=== PATIENT | male | born 1980 | race Two or more races ===

== ENCOUNTER 2020-05-11 11:41 | Outpatient (REF) | payer BC, SELFPAY | END 2020-05-11 11:42 | disposition home or self-care (01) | LOC: HO.LAB 11:41 | PROVIDERS: PCP Internal Medicine; Visit Provider Internal Medicine | DX: Z20.828 Contact with and (suspected) exposure to other viral communicable diseases (principal) | CPT/HCPCS: 87635 ==

== ENCOUNTER 2020-05-27 13:53 | Outpatient (REF) | payer BC, SELFPAY | END 2020-05-27 13:54 | disposition home or self-care (01) | LOC: HO.LAB 13:53 | PROVIDERS: Visit Provider Internal Medicine | DX: Z20.828 Contact with and (suspected) exposure to other viral communicable diseases (principal) | CPT/HCPCS: C9803; U0003 ==

== ENCOUNTER 2020-06-03 17:24 | Outpatient (REF) | payer BC, SELFPAY ==
--- NOTE | 2020-06-03 17:32 | XR_ITS ---
EXAMINATION: XR CHEST CLINICAL INFORMATION: Dyspnea COMPARISON: None TECHNIQUE: Frontal view of the chest was obtained. FINDINGS: No acute finding. No failure or infiltrate. There is no effusion. The heart size is within normal limits. The hilar structures do not appear pathologically enlarged. There is no effusion. XR/XR chest 1V IMPRESSION: No acute process.
[2020-06-03 18:04] LABS: MANUAL DIFF FLAG NO
[2020-06-03 18:07] LABS: Basophils Absolute Auto 0.1 X10*3/uL (0.0-0.2); Basophils Percent Auto 0.7 % (0-2); Eosinophils Absolute Auto 0.1 X10*3/uL (0.0-0.4); Eosinophils Percent Auto 0.8 % (0-4); Hemoglobin 7.5 g/dl (14.0-18.0); Imm Gran Abs Auto 0.08 X10*3/uL (0.00-0.03); Imm Gran Pct Auto 0.7 % (0.0-0.4); Lymphocytes Absolute Auto 2.6 X10*3/uL (1.2-4.9); Lymphocytes Percent Auto 24.6 % (20-40); Mean Corpuscular Hemoglobin 21.3 pg (27.0-33.0); Mean Platelet Volume 10.4 fL (9.4-12.4); Monocytes Absolute Auto 0.9 X10*3/uL (0.1-1.2); Neutrophils Percent Auto 65.2 % (45-73); Platelet Count 386 X10*3/uL (160-400); Red Blood Count 3.52 X10*6/uL (4.60-5.80); White Blood Count 10.7 X10*3/uL (4.8-10.8)
[2020-06-03 18:31] LABS: Iron 18 mcg/dL (45-160); Percent Iron Saturation 4 % (15-50); Total Iron Binding Capacity 440 mcg/dL (228-428); Unsaturated Iron Binding 422 ug/dL
== END 2020-06-03 17:25 | disposition home or self-care (01) ==
LOC: HO.LAB 17:24
PROVIDERS: PCP Internal Medicine; Visit Provider Physician Assistant
DX: R06.00 Dyspnea, unspecified (principal)
CPT/HCPCS: 36415; 71045; 83540; 85025

== ENCOUNTER 2020-06-18 16:23 | Outpatient (REF) | payer BC, SELFPAY ==
[2020-06-18 16:46] LABS: MANUAL DIFF FLAG NO
[2020-06-18 16:47] LABS: Basophils Absolute Auto 0.1 X10*3/uL (0.0-0.2); Basophils Percent Auto 1.6 % (0-2); Eosinophils Absolute Auto 0.1 X10*3/uL (0.0-0.4); Eosinophils Percent Auto 1.7 % (0-4); Hematocrit 29.7 % (42-52); Hemoglobin 8.8 g/dl (14.0-18.0); Imm Gran Abs Auto 0.03 X10*3/uL (0.00-0.03); Imm Gran Pct Auto 0.5 % (0.0-0.4); Immature Retic Fraction 31.2 % (2.3-13.4); Lymphocytes Absolute Auto 2.4 X10*3/uL (1.2-4.9); Lymphocytes Percent Auto 37.4 % (20-40); Mean Corpuscular HGB Conc 29.6 g/dl (31.0-36.0); Mean Corpuscular Hemoglobin 21.7 pg (27.0-33.0); Mean Corpuscular Volume 73.3 fL (80-98); Mean Platelet Volume 10.4 fL (9.4-12.4); Monocytes Absolute Auto 0.6 X10*3/uL (0.1-1.2); Monocytes Percent Auto 9.8 % (2-11); Neutrophils Absolute Auto 3.1 X10*3/uL (2.0-8.3); Platelet Count 368 X10*3/uL (160-400); Red Blood Count 4.05 X10*6/uL (4.60-5.80); Red Cell Distribution Width 18.3 % (11.0-16.0); Retic HGB Equivalent 24.6 pg (30.0-35.0); Reticulocytes Absolute 0.162 X10*6/uL (0.026-0.095); White Blood Count 6.3 X10*3/uL (4.8-10.8)
[2020-06-18 17:38] LABS: Iron 41 mcg/dL (45-160); Percent Iron Saturation 10 % (15-50); Total Iron Binding Capacity 409 mcg/dL (228-428); Unsaturated Iron Binding 368 ug/dL
== END 2020-06-18 16:24 | disposition home or self-care (01) ==
LOC: HO.LAB 16:23
PROVIDERS: PCP Internal Medicine; Visit Provider Physician Assistant
DX: D50.9 Iron deficiency anemia, unspecified (principal)
CPT/HCPCS: 36415; 83540; 85025; 85027; 85045

== ENCOUNTER → 2020-07-15 14:43 | Outpatient (BNVA) | payer BC, SELFPAY | PROVIDERS: PCP Internal Medicine; Visit Provider Surgery | DX: K64.9 Unspecified hemorrhoids (principal) | CPT/HCPCS: 46600 ==

== ENCOUNTER 2020-08-28 06:00 | Day surgery (SDC) | payer BC, SELFPAY ==
[2020-08-24 10:15] VITALS: BMI 35.3
--- NOTE | 2020-08-26 14:09 | P.CONAN_ITS ---
Documented by User: Genet Lee 08/26/20 14:12 HPI - Anesthesia Eval Consult details Narrative: 40yo M for Hemorrhoidectomy,EUA PMFSH Active Problems Active Problems: All Active Problems (Updated 08/24/20 @ 10:12 by Mayra Nolan) Dyspnea on exertion (Acute) Hemorrhoid (Acute) Iron deficiency anemia (Acute) Rectal bleeding (Acute) Bleeding hemorrhoid (Acute) HTN (hypertension) (Acute) Hypertension (Acute) Past Medical History Medical History Anemia High cholesterol Hypertension Iron deficiency anemia Family History Family History Mother Medical history unknown Father Prostate cancer Paternal Uncle Prostate cancer Paternal Grandfather Prostate cancer Diabetes Hypertension Surgical History Surgical History H/O hand surgery History of tonsillectomy Hx of colonoscopy Social History Social History Are you a primary healthcare consultant to a significant other at home: No Do you presently have visiting nurse or other home services: No Alcohol intake: current Alcohol intake frequency: holidays/special occasions only Smoking Status: Never smoker Use of substances other than those prescribed or required for medical reasons: No Have you been hit, kicked, punched, or otherwise hurt by someone within the past year? If so, by whom?: No Advance Directives: No Advance Directives Information Provided: No Advance Directives on File: No Recently lost weight without trying: No Meds Allergies Allergy/AdvReac Type Severity Reaction Status Date / Time hydroxyzine AdvReac Unknown sleepiness Verified 08/24/20 10:13 lisinopril AdvReac Unknown dry cough, Verified 08/24/20 10:13 pruritus Home Medications Medication Instructions Recorded Confirmed Last Taken Type atorvastatin 80 mg tablet 80 mg PO DAILY 06/03/20 08/24/20 Unknown History cholecalciferol (vitamin D3) 25 25 mcg PO DAILY 06/03/20 08/24/20 Unknown History mcg (1,000 unit) tablet fenofibrate nanocrystallized 145 145 mg PO DAILY 06/03/20 08/24/20 Unknown History mg tablet hydrochlorothiazide 25 mg tablet 25 mg PO DAILY 06/03/20 08/24/20 Unknown History Exam Exam Date and Time: August 26, 2020 1409 Height,Weight and Vital Signs: Height 6 ft 2 in Weight 124.738 kg Pertinent Lab Results Pertinent Lab Results: Laboratory Tests 06/18/20 16:35 WBC 6.3 Hgb 8.8 L Hct 29.7 L Plt Count 368 Assessment and Plan Assessment Anesthesia Assessment: Chart Reviewed Documented by User: Liza Harrison 08/28/20 07:12 [facility] Past Medical History Medical History Anemia High cholesterol Hypertension Iron deficiency anemia Family History Family History Mother Medical history unknown Father Prostate cancer Paternal Uncle Prostate cancer Paternal Grandfather Prostate cancer Diabetes Hypertension Surgical History Surgical History H/O hand surgery History of tonsillectomy Hx of colonoscopy Social History Social History Are you a primary healthcare consultant to a significant other at home: No Do you presently have visiting nurse or other home services: No Alcohol intake: current Alcohol intake frequency: holidays/special occasions only Smoking Status: Never smoker Use of substances other than those prescribed or required for medical reasons: No Have you been hit, kicked, punched, or otherwise hurt by someone within the past year? If so, by whom?: No Advance Directives: No Advance Directives Information Provided: No Advance Directives on File: No Recently lost weight without trying: No Meds Allergies Allergy/AdvReac Type Severity Reaction Status Date / Time hydroxyzine AdvReac Unknown sleepiness Verified 08/24/20 10:13 lisinopril AdvReac Unknown dry cough, Verified 08/24/20 10:13 pruritus Home Medications Medication Instructions Recorded Confirmed Last Taken Type atorvastatin 80 mg tablet 80 mg PO DAILY 06/03/20 08/24/20 Unknown History cholecalciferol (vitamin D3) 25 25 mcg PO DAILY 06/03/20 08/24/20 Unknown History mcg (1,000 unit) tablet fenofibrate nanocrystallized 145 145 mg PO DAILY 06/03/20 08/24/20 Unknown History mg tablet hydrochlorothiazide 25 mg tablet 25 mg PO DAILY 06/03/20 08/24/20 Unknown History Exam Airway Mallampati Class: II TM Dist: >3cm Neck ROM: Full
[2020-08-28] VITALS (9 sets, daily range): BP systolic 129–158; BP diastolic 83–102; PULSE 69–89; RESP 16–20; TEMP 36.8–37.1; O2SAT 99–100
[2020-08-28] MEDS: Lactated Ringers 1,000 ML 100 ML IVCONT (06:47)
--- NOTE | 2020-08-28 07:22 | MHC.SHP ---
Pre-Procedural Eval Section B Chief Complaint: bleeding hemorrhoid Allergies: Allergies Allergy/AdvReac Type Severity Reaction Status Date / Time hydroxyzine AdvReac Unknown sleepiness Verified 08/24/20 10:13 lisinopril AdvReac Unknown dry cough, Verified 08/24/20 10:13 pruritus Plan I have reviewed the history and physical and performed a pertinent physical examination on my patient. No changes have occurred unless specified.
--- NOTE | 2020-08-28 08:39 | PM.OP ---
Brief Operative Note Date of Service: 08/28/20 Pre-op diagnosis: bleeding int ext hemorrhoids Post-op diagnosis: same Procedure: EUA, hemorrhoidectomy x 3 Surgeon: Stuart Arzola MD Anesthesia: GETA Estimated blood loss (mL): 75 Pathology: other (hemorrhoids) Condition: stable Disposition: PACU
--- NOTE | 2020-08-28 08:40 | P.OP_ITS ---
Operative Note Operative Note Date of Service: 08/28/20 Narrative: PROCEDURE: EXAM UNDER ANESTHESIA, HEMORRHOIDECTOMY X3 COLUMNS PREOP DIAGNOSIS: BLEEDING INTERNAL AND EXTERNAL HEMORRHOIDS POSTOP DIAGNOSIS: THE SAME, WITH VERY BULKY HEMORRHOIDAL COLUMNS SURGEON: CRESCENCIO BARRERA M.D. The patient is a 40-year-old male with chronic problems with pain, swelling and bleeding with his hemorrhoids. He was seen in the office and was noted to have bulky hemorrhoidal columns. In view of worsening symptoms wanted proceed with hemorrhoidectomy. He understood the technique of the procedure as well as the risks, benefits, and alternatives. The patient was brought to the operating room and placed in prone nazanin-knife position under general anesthesia via endotracheal tube. The buttocks were retracted with wide tape laterally. The perianal was prepped and draped in the usual sterile fashion. A surgical time-out was done. The patient received Cefotan 2 g IV preoperatively. I infiltrated the perianal area with lidocaine 1%. Examination of the oral orifice revealed very bulky hemorrhoidal columns, both the left and right side. I then inserted abuse Whitlock retractor and examined the anal canal circumferentially. Again very bulky hemorrhoidal columns were seen, a mix of internal and external, with the bulkiest column on the right side. I proceeded to apply a Bella graspers at the hemorrhoidal column on the right. I used these Bella graspers to retract the hemorrhoidal column into the field. I applied a vikaid-ig-bxbec stitch at the pedicle proximal to the dentate line using a chromic 3-0. I then made an incision around this hemorrhoid column to the perianal skin using a blade 15. I excised this hemorrhoidal column above the plane of sphincters using met some bone scissors all the way to the pedicle. I then closed the incision with a running chromic 3-0 stitch. I had to place multiple additional chromic 3-0 figure-eight sutures for hemostasis in view of the significant bleeding from the very bulky hemorrhoidal column. I then proceeded to repeat the procedure on the 2 other hemorrhoidal columns. The 2nd, that was removed was the one on the right anterior. Again this was grasped with a Bella grasper. I made a gzfest-uo-icksr stitch at the pedicle using chromic 3-0 and made an incision around this to the perianal skin using a blade 15. I excised this hemorrhoidal column above the plane of the sphincters using scissors. I closed this incision with a running chromic 3-0 stitch. I had to place multiple qcgtta-qa-zqhff sutures as well. I removed the hemorrhoidal column which was also bulky on the left using the same back technique. I made a zcjyde-zo-ufvvl stitch at the pedicle and made incision around this to the perianal skin using blade 15. I excised this hemorrhoidal column above the plane of the sphincters using scissors. I closed the incision with a running chromic 2-0 stitch I observed for hemo stasis. Again in view of the very bulky nature of this hemorrhoids, I had to apply multiple other figure-eight chromic 3-0 sutures. Once hemostasis was ensured I proceeded to then apply rolled Gelfoam packing into the anal canal for additional hemostasis. I infiltrated the perianal area Marcaine 0.5% for postop analgesia. We proceeded to then observe for about 2 minutes. Once hemostasis was confirmed the procedure was completed The patient tolerated well. The contained noted. Initial fine counts of spo nges and instruments were correct. Estimated blood loss about 75 cc. The patient was extubated without difficulty and transferred to recovery room with stable vital signs.
[2020-08-28] MEDS: oxyCODONE HCl Immed Release 5 MG TABLET 10 MG PO (08:58)
[2020-08-28] MEDS: fentaNYL citrate/PF 100 MCG/2 ML VIAL 50 MCG IVPUSH ×2 (08:59→09:09)
== END 2020-08-28 10:18 | disposition home or self-care (01) ==
PROVIDERS: PCP Internal Medicine; Visit Provider Surgery
PROC: (CPT 46260; principal; 2020-08-28 07:30)
DX: K64.8 Other hemorrhoids (principal); K64.4 Residual hemorrhoidal skin tags; I10 Essential (primary) hypertension
CPT/HCPCS: 46260; 88304; J1100; J1170; J1885; J2250; J2405; J3010

== ENCOUNTER 2020-08-28 14:33 | Emergency (ER) | payer BC, SELFPAY ==
--- NOTE | 2020-08-30 06:43 | ED.MALEGU ---
HPI - Male Genitourinary General Chief complaint: Urogenital-Male Stated complaint: diff urinating,s/p surgery Related Data Home Medications Medication Instructions Recorded Confirmed atorvastatin 80 mg tablet 80 mg PO DAILY 06/03/20 08/24/20 cholecalciferol (vitamin D3) 25 25 mcg PO DAILY 06/03/20 08/24/20 mcg (1,000 unit) tablet fenofibrate nanocrystallized 145 145 mg PO DAILY 06/03/20 08/24/20 mg tablet hydrochlorothiazide 25 mg tablet 25 mg PO DAILY 06/03/20 08/24/20 Previous Rx's Medication Instructions Recorded ferrous sulfate 325 mg (65 mg 325 mg PO BID 30 Days #60 tab 06/04/20 iron) tablet hydrocortisone 1 % topical cream 1 applic TOPICAL TID PRN 15 Days 06/04/20 #28 g amlodipine 5 mg tablet 5 mg PO DAILY 30 Days #30 tab 06/18/20 blood pressure monitor #1 ea 06/18/20 docusate sodium 100 mg capsule 100 mg PO BID #60 cap 07/22/20 docusate sodium [Colace] 100 mg PO BID #60 cap 08/28/20 ibuprofen 600 mg PO Q6H PRN #30 tab 08/28/20 oxycodone-acetaminophen [Percocet] 1 - 2 tab PO Q4-6H PRN #30 tab 08/28/20 Allergies Allergy/AdvReac Type Severity Reaction Status Date / Time hydroxyzine AdvReac Unknown sleepiness Verified 08/24/20 10:13 lisinopril AdvReac Unknown dry cough, Verified 08/24/20 10:13 pruritus PMFSH Past Medical History Medical History Anemia High cholesterol Hypertension Iron deficiency anemia Surgical History H/O hand surgery History of tonsillectomy Hx of colonoscopy Family History Family History Mother Medical history unknown Father Prostate cancer Paternal Uncle Prostate cancer Paternal Grandfather Prostate cancer Diabetes Hypertension Social History Social History Alcohol intake: current Alcohol intake frequency: holidays/special occasions only Smoking Status: Never smoker Advance Directives: No Advance Directives Information Provided: No Discharge Plan Discharge Patient Disposition: Left Without Being Seen Discharge Date/Time: 08/28/20 16:05
== END 2020-08-28 16:05 | disposition left against medical advice (07) ==
PROVIDERS: Emergency Provider Emergency Medicine; PCP Internal Medicine
DX: R30.0 Dysuria (principal); I10 Essential (primary) hypertension; D50.9 Iron deficiency anemia, unspecified
CPT/HCPCS: 99281

== ENCOUNTER → 2020-09-10 08:48 | Outpatient (BNVA) | payer BC, SELFPAY | PROVIDERS: PCP Internal Medicine; Visit Provider Surgery ==

== ENCOUNTER → 2021-01-06 15:45 | Outpatient (BNVA) | payer BC, SELFPAY | PROVIDERS: PCP Internal Medicine; Visit Provider Nurse Practitioner Family ==

== ENCOUNTER 2021-03-01 06:38 | Outpatient (REF) | payer BC, SELFPAY ==
[2021-03-01 07:18] LABS: Hematocrit 40.4 % (42-52); Hemoglobin 12.7 g/dl (14.0-18.0); Mean Corpuscular HGB Conc 31.4 g/dl (31.0-36.0); Mean Corpuscular Hemoglobin 23.6 pg (27.0-33.0); Mean Corpuscular Volume 75.2 fL (80-98); Mean Platelet Volume 10.8 fL (9.4-12.4); Platelet Count 329 X10*3/uL (160-400); Red Blood Count 5.37 X10*6/uL (4.60-5.80); Red Cell Distribution Width 14.4 % (11.0-16.0)
[2021-03-01 07:39] LABS: Alanine Aminotransferase 28 U/L (0-40); Albumin Level 4.7 g/dL (3.5-5.0); Alkaline Phosphatase 83 U/L (39-117); Anion Gap 15 (12-20); Aspartate Amino Transferase 17 U/L (5-37); Bilirubin Total 0.2 mg/dL (0.0-1.0); Blood Urea Nitrogen 10 mg/dL (9-16); Carbon Dioxide 26 mmol/L (22-29); Chloride 105 mmol/L (96-108); Cholesterol 221 mg/dL; Estimated Glomerular Filt Rate > 60; Glucose Fasting 90 mg/dL (60-99); HDL Cholesterol 36 mg/dL; Iron 37 mcg/dL (45-160); LDL Cholesterol Calculated 120 mg/dl; Percent Iron Saturation 10 % (15-50); Potassium 4.3 mmol/L (3.3-5.1); Sodium 142 mmol/L (135-145); Total Iron Binding Capacity 382 mcg/dL (228-428); Total Protein 7.3 g/dL (6.5-8.0); Triglycerides 328 mg/dL; Unsaturated Iron Binding 345 ug/dL
[2021-03-01 07:59] LABS: TSH reflex Free T4 1.98 uIU/mL (0.32-4.0)
== END 2021-03-01 06:39 | disposition home or self-care (01) ==
LOC: HO.LAB 06:38
PROVIDERS: PCP Physician Assistant; Referring Provider Nurse Practitioner Family; Visit Provider Physician Assistant
DX: I10 Essential (primary) hypertension (principal); D50.0 Iron deficiency anemia secondary to blood loss (chronic); Z80.42 Family history of malignant neoplasm of prostate; Z12.5 Encounter for screening for malignant neoplasm of prostate
CPT/HCPCS: 36415; 80053; 80061; 83540; 84153; 84443; 85027

== ENCOUNTER → 2021-03-02 15:19 | Outpatient (BNVA) | payer BC, SELFPAY | PROVIDERS: Visit Provider Nurse Practitioner Family ==

== ENCOUNTER 2021-04-05 11:37 | Day surgery (SDC) | payer BC, SELFPAY ==
[2021-03-31 11:47] VITALS: BMI 34.9
--- NOTE | 2021-04-01 15:18 | HO.ANESPROP2 ---
Documented by User: Genet Lee NP 04/01/21 15:20 HPI - Anesthesia Eval Consult details Narrative: 40yo M for Colonoscopy PMFSH Active Problems Active Problems: All Active Problems (Updated 11/30/20 @ 07:10 by Jose Antonio Bryant PA-C) Annual physical exam (Acute) Tinea unguium (Acute) Tubular adenoma of colon (Acute) Family history of prostate carcinoma (Acute) Colon cancer screening (Acute) Iron deficiency anemia (Acute) Dyspnea on exertion (Acute) Hemorrhoid (Acute) Rectal bleeding (Acute) Bleeding hemorrhoid (Acute) HTN (hypertension) (Acute) Hypertension (Acute) Past Medical History Medical History Anemia High cholesterol Hypertension Iron deficiency anemia Family History Family History Mother Medical history unknown Father Prostate cancer Paternal Uncle Prostate cancer Paternal Grandfather Prostate cancer Diabetes Hypertension Surgical History Surgical History H/O hand surgery History of hemorrhoidectomy History of tonsillectomy Hx of colonoscopy Social History Social History Are you a primary director day care center to a significant other at home: No Do you presently have visiting nurse or other home services: No Alcohol intake: current Alcohol intake frequency: holidays/special occasions only Patient Tobacco Use Status: Never used Tobacco Use of substances other than those prescribed or required for medical reasons: No Have you been hit, kicked, punched, or otherwise hurt by someone within the past year? If so, by whom?: No Are you DNR?: No Advance Directives: No Advance Directives Information Provided: Yes Recently lost weight without trying: No Nutrition Risks: No Nutritional Risk Poor oral hygiene: No Current occupational status: employed Current occupation: forklift truck mechanic Meds Allergies Allergy/AdvReac Type Severity Reaction Status Date / Time hydroxyzine AdvReac Unknown sleepiness Verified 03/02/21 15:33 lisinopril AdvReac Unknown dry cough, Verified 03/02/21 15:33 pruritus Exam Exam Date and Time: April 01, 2021 1518 Height,Weight and Vital Signs: Height 6 ft 2 in Weight 123.377 kg Pertinent Lab Results Pertinent Lab Results: Laboratory Tests 03/01/21 03/01/21 06:45 06:45 WBC 9.0 Hgb 12.7 L D Hct 40.4 L D Plt Count 329 Sodium 142 Potassium 4.3 Chloride 105 Carbon Dioxide 26 BUN 10 Creatinine 1.10 Assessment and Plan Assessment Anesthesia Assessment: Chart Reviewed Documented by User: Riana Parks MD 04/05/21 12:03 [facility] Past Medical History Medical History Anemia High cholesterol Hypertension Iron deficiency anemia Family History Family History Mother Medical history unknown Father Prostate cancer Paternal Uncle Prostate cancer Paternal Grandfather Prostate cancer Diabetes Hypertension Family history of problems with anesthesia: No Surgical History Surgical History H/O hand surgery History of hemorrhoidectomy History of tonsillectomy Hx of colonoscopy History of Problems with Anesthesia: No Social History Social History Are you a primary director day care center to a significant other at home: No Do you presently have visiting nurse or other home services: No Alcohol intake: current Alcohol intake frequency: holidays/special occasions only Patient Tobacco Use Status: Never used Tobacco Use of substances other than those prescribed or required for medical reasons: No Have you been hit, kicked, punched, or otherwise hurt by someone within the past year? If so, by whom?: No Are you DNR?: No Advance Directives: No Advance Directives Information Provided: Yes Recently lost weight without trying: No Nutrition Risks: No Nutritional Risk Poor oral hygiene: No Current occupational status: employed Current occupation: forklift truck mechanic Meds Allergies Allergy/AdvReac Type Severity Reaction Status Date / Time hydroxyzine AdvReac Unknown sleepiness Verified 03/02/21 15:33 lisinopril AdvReac Unknown dry cough, Verified 03/02/21 15:33 pruritus Exam Airway Mallampati Class: II TM Dist: >3cm Neck ROM: Full Heart: rrr Lungs: cta Assessment and Plan Assessment Anesthesia Assessment: Anesthesia Plan Discussed and Chart Reviewed Final Anesthetic Review Family History of Problems with Anesthesia: No History of Problems with Anesthesia: No NPO: Yes ASA Class: III Final Preanesthetic Review: No Changes in Pt Med Stat, Meds/Allgs Chart Reviewed and Consent Obtained/Reviewed Patient Risk: Intermediate Procedure Risk: Intermediate Anesthetic Plan Anesthetic Plan: MAC: Disposition: Standard PACU
[2021-04-05 11:50] VITALS: BP 195/78; PULSE 65; RESP 18; TEMP 36.9; O2SAT 98
[2021-04-05 11:56] VITALS: BP 152/70
--- NOTE | 2021-04-05 11:57 | P.HPSUR_ITS ---
Pre-Procedural Eval Section A Date of Service: 04/05/21 Section B Chief Complaint: Screening Relevant Family History (Specify if Yes): No Relevant Social History: None Present Medications: see Short Stay Collaborative assessment Medical History: Significant History (Anemia High cholesterol Hypertension) History of Previous Operations: Relevant previous surgery/procedure and date(s) (H/O hand surgery History of hemorrhoidectomy History of tonsillectomy Hx of colonoscopy) Allergies: Allergies Allergy/AdvReac Type Severity Reaction Status Date / Time hydroxyzine AdvReac Unknown sleepiness Verified 03/02/21 15:33 lisinopril AdvReac Unknown dry cough, Verified 03/02/21 15:33 pruritus Review of Systems Sugical H&P ROS: Negative: Constitution, Cardiovascular, Respiratory, Neurological, Psychiatric, Hem-Onc, Allergic/Immunologic, Gastrointestinal, Ge nitourinary, Musculoskeletal, Integumentary, Endocrine and Eyes/Ears/Nose/Throat Exam Surgical H&P Exam: Normal: HEENT, Normal: Heart, Normal: Lungs, Normal: Extremities, Normal: Abdomen, Normal: Skin and Normal: Neurological Plan Diagnosis/Plan: Unchanged I have reviewed the history and physical and performed a pertinent physical examination on my patient. No changes have occurred unless specified.
[2021-04-05] MEDS: Lactated Ringers 1,000 ML 100 ML IVCONT (12:02)
--- NOTE | 2021-04-05 12:33 | P.BOP_ITS ---
Brief Operative Note Date of Service: 04/05/21 Pre-op diagnosis: hx of colon polyp Post-op diagnosis: same Procedure: see op note Surgeon: Susi Weiss MD Anesthesia: MAC Was an Office Machine Installer used for this Procedure?: No Estimated blood loss (mL): 0 Condition: stable Disposition: PACU
--- NOTE | 2021-04-05 12:34 | P.OP_ITS ---
Operative Note Operative Note Date of Service: 04/05/21 Narrative: Operative Information Procedure Description: Colonoscopy COLONOSCOPY Instrument: Olympus variable stiffness pediatric scope 190L Colonoscopy Monitoring: Vital signs and clinical assessment, continuous EKG monitoring, Pulse oximetry, Carbon Dioxide monitoring and blood pressure monitoring were done throughout the procedure. Colon withdrawal time was 10 minutes. Procedure: The patient was placed in the left lateral decubitis position and pre-procedure medications were administered. After a digital rectal examination of the ano-rectum, the video colonoscope was inserted into the rectum and advanced through the colon to the cecum/TI. The colonoscope was slowly withdrawn in a retrograde panoramic fashion and the colon mucosa was carefully examined including a retroflexed view of the rectum. Findings and interventions are described below. Procedure Difficulty:easy Findings: Terminal Ileum-normal Cecum:normal Ascending Colon: normal Transverse Colon -normal Descending Colon: 6-8 mm sessile polyp removed with forceps Sigmoid Colon: normal Rectum: Retroflexion with moderate sized internal hemorrhoids, grade II with red irce , x 1 sessile polyp 6-8 mm removed with forceps Anorectum - normal Colon preparation: [place] Bowel Preparation Scale Right colon; 2 (borderline 2 after extensive washing) Transverse colon: 2 Left colon; 2 (0 = Unprepared colon segment with mucosa not seen due to solid stool that cannot be cleared. 1 = Portion of mucosa of the colon segment seen, but other areas of the colon segment not well seen due to staining, residual stool and/or opaque liquid. 2 = Minor amount of residual staining, small fragments of stool and/or opaque liquid, but mucosa of colon segment seen well. 3 = Entire mucosa of colon segment seen well with no residual staining, small fragments of stool or opaque liquid) Impression and Post Procedure Diagnosis: polyps internal hemorrhoids Plan: High fiber diet leaflet Avoid straining at stool, epsom salts and sitz bath, anusol supps or cream Repeat Colonoscopy in 5 years due to right sided prep and polyps or earlier if clinically indicated Above findings were reviewed with the patient and relevant handouts were provided if indicated.
[2021-04-05 12:41] VITALS: BP 110/76; PULSE 84; RESP 16; TEMP 36.1; O2SAT 96
[2021-04-05 12:56] VITALS: BP 140/94; PULSE 80; RESP 18; O2SAT 96
--- NOTE | 2021-04-05 13:10 | PC.NURSE ---
1300- SPOKE W PT AT LENGTH RE BP HERE AND NEED TO TAKE BP MED DAILY PRESCRIBED, STS HE DID NOT TAKE TODAY, WILL TAKE WHEN HE GETS HOME
== END 2021-04-05 14:08 | disposition home or self-care (01) ==
PROVIDERS: PCP Physician Assistant; Visit Provider Internal Medicine Gastroenterology
PROC: 0DJD8ZZ Inspection of Lower Intestinal Tract, Via Natural or Artificial Opening Endoscopic (ICD-10-PCS; CPT 45378; principal; 2021-04-05 13:20)
DX: Z12.11 Encounter for screening for malignant neoplasm of colon (principal); K63.5 Polyp of colon; K64.1 Second degree hemorrhoids; Z86.010 Personal history of colon polyps; I10 Essential (primary) hypertension; D50.0 Iron deficiency anemia secondary to blood loss (chronic)
CPT/HCPCS: 45380; 88305

== ENCOUNTER 2021-07-07 16:30 | Emergency (ER) | payer BC, SELFPAY ==
--- NOTE | 2021-07-07 | ECG_ITS ---
Test Reason : CHEST PAIN Blood Pressure : / mmHG Vent. Rate : 093 BPM Atrial Rate : 093 BPM P-R Int : 162 ms QRS Dur : 094 ms QT Int : 340 ms P-R-T Axes : 020 -03 -06 degrees QTc Int : 422 ms Normal sinus rhythm Normal ECG When compared with ECG of 24-JUN-2018 23:12, No significant changes seen Referred By: Generic ED Physician Electronically Signed By:BRIANNA TAYLOR
--- NOTE | ~2021-07-07 | XR_ITS ---
EXAMINATION: XR CHEST CLINICAL INFORMATION: Chest pain. COMPARISON: Chest x-ray 06/03/2020 TECHNIQUE: Frontal portable view of the chest was obtained. 5:15 PM FINDINGS: Patchy multifocal bibasilar airspace opacities, worse at the right than the left lung base. No pleural effusion. No pneumothorax. The heart size is normal. The cardiac and mediastinal contours are normal. There is no pulmonary vascular congestion. XR/XR chest 1V IMPRESSION: Patchy multifocal bibasilar airspace disease.
[2021-07-07 17:34] LABS: MANUAL DIFF FLAG NO
[2021-07-07 17:41] LABS: Basophils Absolute Auto 0.1 X10*3/uL (0.0-0.2); Basophils Percent Auto 1.1 % (0-2); Eosinophils Absolute Auto 0.1 X10*3/uL (0.0-0.4); Eosinophils Percent Auto 0.9 % (0-4); Hematocrit 35.4 % (42.0-52.0); Hemoglobin 11.7 g/dl (14.0-18.0); Imm Gran Abs Auto 0.03 X10*3/uL (0.00-0.03); Imm Gran Pct Auto 0.4 % (0.0-0.4); Lymphocytes Absolute Auto 1.7 X10*3/uL (1.2-4.9); Lymphocytes Percent Auto 22.2 % (20-40); Mean Corpuscular HGB Conc 33.1 g/dl (31.0-36.0); Mean Corpuscular Hemoglobin 25.3 pg (27.0-33.0); Mean Corpuscular Volume 76.6 fL (80.0-98.0); Mean Platelet Volume 10.5 fL (9.4-12.4); Monocytes Absolute Auto 0.9 X10*3/uL (0.1-1.2); Monocytes Percent Auto 12.3 % (2-11); Neutrophils Absolute Auto 4.7 x10*3/uL (2.0-8.3); Neutrophils Percent Auto 63.1 % (45-73); Platelet Count 322 X10*3/uL (160-400); Red Blood Count 4.62 X10*6/uL (4.60-5.80); Red Cell Distribution Width 13.9 % (11.0-16.0); White Blood Count 7.5 X10*3/uL (4.8-10.8)
[2021-07-07 17:53] LABS: Anion Gap 12 (12-20); Blood Urea Nitrogen 6 mg/dL (9-16); Calcium 9.4 mg/dL (8.4-10.2); Carbon Dioxide 25 mmol/L (22-29); Chloride 107 mmol/L (96-108); Estimated Glomerular Filt Rate > 60; Glucose Random 99 mg/dL (60-115); Sodium 140 mmol/L (135-145)
[2021-07-07 17:57] VITALS: BP 149/84; PULSE 99; RESP 22; TEMP 37.7; O2SAT 94; BMI 35.3
[2021-07-07 17:59] LABS: Troponin-I High Sensitivity 4.2 ng/L (<3.5-35.0)
--- NOTE | 2021-07-07 21:08 | ED_ITS ---
HPI - Chest Pain General Chief Complaint: Chest Pain Stated Complaint: chest pain; sob Time Seen by Provider: 07/07/21 21:08 Related Data Previous Rx's Medication Instructions Recorded hydrocortisone 1 % topical cream 1 applic TOPICAL TID PRN 15 Days 06/04/20 (Preparation H Hydrocortisone) #28 g blood pressure monitor (Blood #1 ea 06/18/20 Pressure Kit) albuterol sulfate 90 mcg/actuation 1 inh INHALATION QID 30 Days #8.5 g 05/27/21 aerosol inhaler amlodipine 10 mg tablet 10 mg PO DAILY 90 Days #90 tab 07/05/21 atorvastatin 80 mg tablet 80 mg PO DAILY 90 Days #90 tab 07/05/21 betamethasone dipropionate 0.05 % 1 appl TOPICAL BID PRN #45 g 07/05/21 topical cream cholecalciferol (vitamin D3) 25 25 mcg PO DAILY 90 Days #90 tab 07/05/21 mcg (1,000 unit) tablet diphenhydramine HCl 25 mg capsule 25 mg PO BEDTIME PRN #10 cap 07/05/21 (Benadryl) fenofibrate nanocrystallized 145 145 mg PO DAILY 90 Days #90 tab 07/05/21 mg tablet Allergies Allergy/AdvReac Type Severity Reaction Status Date / Time hydroxyzine AdvReac Unknown sleepiness Verified 07/05/21 15:21 lisinopril AdvReac Unknown dry cough, Verified 07/05/21 15:21 pruritus PMFSH Past Medical History Medical History Anemia High cholesterol Hypertension Iron deficiency anemia Surgical History H/O hand surgery History of hemorrhoidectomy History of tonsillectomy Hx of colonoscopy Family History Family History Mother Medical history unknown Father Prostate cancer Paternal Uncle Prostate cancer Paternal Grandfather Prostate cancer Diabetes Hypertension Social History Social History Housing: Apartment Are you a primary livestock caretaker to a significant other at home: No Do you presently have visiting nurse or other home services: No Alcohol intake: current Alcohol intake frequency: holidays/special occasions only Patient Tobacco Use Status: Never used Tobacco e-Cigarette/Vaping Use: Never Used Second Hand Smoke Exposure: No Advance Directives: No Advance Directives Information Provided: No Current occupational status: employed Current occupation: armored truck driver Cognitive needs: No Hearing needs: No Vision needs: No Physical Exam Vital Signs: Vital Signs: Last Vital Signs Temp 99.8 F 07/07/21 17:57 Pulse 99 07/07/21 17:57 Resp 22 H 07/07/21 17:57 BP 149/84 H 07/07/21 17:57 Pulse Ox 94 07/07/21 17:57 BMI result Body Mass Index 35.3 MDM - Chest Pain Lab Data Result diagrams: 07/07/21 17:29 07/07/21 17:29 Labs: Lab Results 07/07/21 07/07/21 07/07/21 Range/Units 17:28 17:29 17:29 WBC 7.5 (4.8-10.8) X10*3/uL RBC 4.62 (4.60-5.80) X10*6/uL Hgb 11.7 L (14.0-18.0) g/dl Hct 35.4 L (42.0-52.0) % MCV 76.6 L (80.0-98.0) fL MCH 25.3 L (27.0-33.0) pg MCHC 33.1 (31.0-36.0) g/dl RDW 13.9 (11.0-16.0) % Plt Count 322 (160-400) X10*3/uL MPV 10.5 (9.4-12.4) fL Immature Gran % (Auto) 0.4 (0.0-0.4) % Neut % (Auto) 63.1 (45-73) % Lymph % (Auto) 22.2 (20-40) % [place] % (Auto) 12.3 H (2-11) % Eos % (Auto) 0.9 (0-4) % Baso % (Auto) 1.1 (0-2) % Lymph # (Auto) 1.7 (1.2-4.9) X10*3/uL [place] # (Auto) 0.9 (0.1-1.2) X10*3/uL Eos # (Auto) 0.1 (0.0-0.4) X10*3/uL Baso # (Auto) 0.1 (0.0-0.2) X10*3/uL Abs Immat Gran (auto) 0.03 (0.00-0.03) X10*3/uL Absolute Neuts (auto) 4.7 (2.0-8.3) x10*3/uL Absolute Nucleated RBC 0.000 (0.0-0.012) X10*3/uL Nucleated RBC % (auto) 0.0 (0.0-0.2) /100WBC Sodium 140 (135-145) mmol/L Potassium 4.0 (3.3-5.1) mmol/L Chloride 107 (96-108) mmol/L Carbon Dioxide 25 (22-29) mmol/L Anion Gap 12 (12-20) BUN 6 L (9-16) mg/dL Creatinine 1.02 (0.5-1.4) mg/dL Estim Creat Clear Calc TNP Estimated GFR > 60 Random Glucose 99 (60-115) mg/dL Calcium 9.4 (8.4-10.2) mg/dL Troponin I High Sens 4.2 (<3.5-35.0) ng/L Discharge Plan Discharge Prescriptions: No Action hydrocortisone [Preparation H Hydrocortisone] 1 % cream 1 applic topical TID PRN (Reason: skin irritation) 15 Days Qty: 28 RF: 0 (DME) blood pressure monitor [Blood Pressure Kit] Kit See Rx Instructions .ROUTE .MEDSUPPLY Qty: 1 RF: 0 albuterol sulfate 90 mcg/actuation HFA aerosol inhaler 1 inh inhalation QID 30 Days Qty: 8.5 RF: 1 betamethasone dipropionate 0.05 % cream 1 appl topical BID PRN (Reason: skin irritation) Qty: 45 RF: 0 fenofibrate nanocrystallized 145 mg tablet 145 mg PO DAILY 90 Days Qty: 90 RF: 1 atorvastatin 80 mg tablet 80 mg PO DAILY 90 Days Qty: 90 RF: 1 amlodipine 10 mg tablet 10 mg PO DAILY 90 Days Qty: 90 RF: 1 diphenhydramine HCl [Benadryl] 25 mg capsule 25 mg PO BEDTIME PRN (Reason: sleep) Qty: 10 RF: 0 cholecalciferol (vitamin D3) 25 mcg (1,000 unit) tablet 25 mcg PO DAILY 90 Days Qty: 90 RF: 2
--- NOTE | 2021-07-07 21:25 | ED.URI ---
HPI - URI/Sore Throat General Chief Complaint: Chest Pain Stated Complaint: chest pain; sob Time Seen by Provider: 07/07/21 21:08 Source: patient Mode of arrival: ambulatory Limitations: no limitations History of Present Illness HPI Narrative: Patient already been vaccinated against COVID-19 complaint of cough subjective fever shortness of breath since yesterday with chest tightness no history of asthma did a COVID testing at home which was negative cough is mostly dry no known coronary artery disease no other family member sick Related Data Previous Rx's Medication Instructions Recorded hydrocortisone 1 % topical cream 1 applic TOPICAL TID PRN 15 Days 06/04/20 (Preparation H Hydrocortisone) #28 g blood pressure monitor (Blood #1 ea 06/18/20 Pressure Kit) albuterol sulfate 90 mcg/actuation 1 inh INHALATION QID 30 Days #8.5 g 05/27/21 aerosol inhaler amlodipine 10 mg tablet 10 mg PO DAILY 90 Days #90 tab 07/05/21 atorvastatin 80 mg tablet 80 mg PO DAILY 90 Days #90 tab 07/05/21 betamethasone dipropionate 0.05 % 1 appl TOPICAL BID PRN #45 g 07/05/21 topical cream cholecalciferol (vitamin D3) 25 25 mcg PO DAILY 90 Days #90 tab 07/05/21 mcg (1,000 unit) tablet diphenhydramine HCl 25 mg capsule 25 mg PO BEDTIME PRN #10 cap 07/05/21 (Benadryl) fenofibrate nanocrystallized 145 145 mg PO DAILY 90 Days #90 tab 07/05/21 mg tablet albuterol sulfate 90 mcg/actuation 2 puff INHALATION Q4-6H PRN #8.5 g 07/07/21 aerosol inhaler (ProAir HFA) azithromycin 250 mg tablet 250 mg PO DAILY 4 Days #4 tab 07/07/21 (Zithromax Z-Rodrigo) cefuroxime axetil 500 mg tablet 500 mg PO BID #20 tab 07/07/21 prednisone 20 mg tablet 40 mg PO DAILY #10 tab 07/07/21 Allergies Allergy/AdvReac Type Severity Reaction Status Date / Time hydroxyzine AdvReac Unknown sleepiness Verified 07/05/21 15:21 lisinopril AdvReac Unknown dry cough, Verified 07/05/21 15:21 pruritus Review of Systems Review of Systems: Yes all other systems are reviewed and are negative PMFSH Past Medical History Medical History Anemia High cholesterol Hypertension Iron deficiency anemia Surgical History H/O hand surgery History of hemorrhoidectomy History of tonsillectomy Hx of colonoscopy Family History Family History Mother Medical history unknown Father Prostate cancer Paternal Uncle Prostate cancer Paternal Grandfather Prostate cancer Diabetes Hypertension Social History Social History Housing: Apartment Are you a primary animal care supervisor to a significant other at home: No Do you presently have visiting nurse or other home services: No Alcohol intake: current Alcohol intake frequency: holidays/special occasions only Patient Tobacco Use Status: Never used Tobacco e-Cigarette/Vaping Use: Never Used Second Hand Smoke Exposure: No Use of substances other than those prescribed or required for medical reasons: No Advance Directives: No Advance Directives Information Provided: No Current occupational status: employed Current occupation: local company refrigerated truck driver Cognitive needs: No Hearing needs: No Vision needs: No Physical Exam Vital Signs: Vital Signs: Last Vital Signs Temp 99.8 F 07/07/21 17:57 Pulse 99 07/07/21 17:57 Resp 22 H 07/07/21 17:57 BP 149/84 H 07/07/21 17:57 Pulse Ox 94 07/07/21 17:57 BMI result Body Mass Index 35.3 Appearance: Alert. Oriented X3. No acute distress. ENT: Pharynx normal. Oral Mucosa moist Neck: Normal inspection. Neck supple. CVS: Normal heart rate and rhythm. Pulses normal. Respiratory: No respiratory distress. Equal air entry bilateral, no wheezing/rales/rhonchi Abdomen: Soft and nontender. Bowel sounds are present, Skin: Skin warm and dry. Normal skin color. Normal skin turgor. Extremities: No lower extremity edema. No calf tenderness Neuro: Oriented X 3. MDM - URI/Sore Throat MDM Narrative Medical decision making narrative: Patient with atypical pneumonia COVID test negative already been vaccinated against 19 no leukocytosis. Will discharge patient home on Ceftin Zithromax and give short course of prednisone Lab Data Attestation: I reviewed the patient's lab results. Result diagrams: 07/07/21 17:29 07/07/21 17:29 Labs: Lab Results 07/07/21 07/07/21 07/07/21 Range/Units 17:28 17:29 17:29 WBC 7.5 (4.8-10.8) X10*3/uL RBC 4.62 (4.60-5.80) X10*6/uL Hgb 11.7 L (14.0-18.0) g/dl Hct 35.4 L (42.0-52.0) % MCV 76.6 L (80.0-98.0) fL MCH 25.3 L (27.0-33.0) pg MCHC 33.1 (31.0-36.0) g/dl RDW 13.9 (11.0-16.0) % Plt Count 322 (160-400) X10*3/uL MPV 10.5 (9.4-12.4) fL Immature Gran % (Auto) 0.4 (0.0-0.4) % Neut % (Auto) 63.1 (45-73) % Lymph % (Auto) 22.2 (20-40) % [place] % (Auto) 12.3 H (2-11) % Eos % (Auto) 0.9 (0-4) % Baso % (Auto) 1.1 (0-2) % Lymph # (Auto) 1.7 (1.2-4.9) X10*3/uL [place] # (Auto) 0.9 (0.1-1.2) X10*3/uL Eos # (Auto) 0.1 (0.0-0.4) X10*3/uL Baso # (Auto) 0.1 (0.0-0.2) X10*3/uL Abs Immat Gran (auto) 0.03 (0.00-0.03) X10*3/uL Absolute Neuts (auto) 4.7 (2.0-8.3) x10*3/uL Absolute Nucleated RBC 0.000 (0.0-0.012) X10*3/uL Nucleated RBC % (auto) 0.0 (0.0-0.2) /100WBC Sodium 140 (135-145) mmol/L Potassium 4.0 (3.3-5.1) mmol/L Chloride 107 (96-108) mmol/L Carbon Dioxide 25 (22-29) mmol/L Anion Gap 12 (12-20) BUN 6 L (9-16) mg/dL Creatinine 1.02 (0.5-1.4) mg/dL Estim Creat Clear Calc TNP Estimated GFR > 60 Random Glucose 99 (60-115) mg/dL Calcium 9.4 (8.4-10.2) mg/dL Troponin I High Sens 4.2 (<3.5-35.0) ng/L COVID-19 ([facility]) (Negative) COVID-19 Clin Com 07/07/21 Range/Units 21:23 WBC (4.8-10.8) X10*3/uL RBC (4.60-5.80) X10*6/uL Hgb (14.0-18.0) g/dl Hct (42.0-52.0) % MCV (80.0-98.0) fL MCH (27.0-33.0) pg MCHC (31.0-36.0) g/dl RDW (11.0-16.0) % Plt Count (160-400) X10*3/uL MPV (9.4-12.4) fL Immature Gran % (Auto) (0.0-0.4) % Neut % (Auto) (45-73) % Lymph % (Auto) (20-40) % [place] % (Auto) (2-11) % Eos % (Auto) (0-4) % Baso % (Auto) (0-2) % Lymph # (Auto) (1.2-4.9) X10*3/uL [place] # (Auto) (0.1-1.2) X10*3/uL Eos # (Auto) (0.0-0.4) X10*3/uL Baso # (Auto) (0.0-0.2) X10*3/uL Abs Immat Gran (auto) (0.00-0.03) X10*3/uL Absolute Neuts (auto) (2.0-8.3) x10*3/uL Absolute Nucleated RBC (0.0-0.012) X10*3/uL Nucleated RBC % (auto) (0.0-0.2) /100WBC Sodium (135-145) mmol/L Potassium (3.3-5.1) mmol/L Chloride (96-108) mmol/L Carbon Dioxide (22-29) mmol/L Anion Gap (12-20) BUN (9-16) mg/dL Creatinine (0.5-1.4) mg/dL Estim Creat Clear Calc Estimated GFR Random Glucose (60-115) mg/dL Calcium (8.4-10.2) mg/dL Troponin I High Sens (<3.5-35.0) ng/L COVID-19 ([facility]A) Negative (Negative) COVID-19 Clin Com See Note ECG Data Attestation: I personally reviewed and interpreted this ECG as follows: Interpretation: Non sinus rhythm heart rate 93 beats per minute normal intervals normal axis impression normal EKG Discharge Plan Discharge Clinical Impression: Community acquired pneumonia Patient Disposition: Home, Self-Care Instructions: Community Acquired Pneumonia (ED) Additional Instructions: Take antibiotics as prescribed Prednisone as advised Drink plenty of fluids Use inhaler as needed Follow with PCP if not better Prescriptions: New cefuroxime axetil 500 mg tablet 500 mg PO BID Qty: 20 RF: 0 prednisone 20 mg tablet 40 mg PO DAILY Qty: 10 RF: 0 albuterol sulfate [ProAir HFA] 90 mcg/actuation HFA aerosol inhaler 2 puff inhalation Q4-6H PRN (Reason: Wheezing) Qty: 8.5 RF: 0 azithromycin [Zithromax Z-Rodrigo] 250 mg tablet 250 mg PO DAILY 4 Days Qty: 4 RF: 0 No Action hydrocortisone [Preparation H Hydrocortisone] 1 % cream 1 applic topical TID PRN (Reason: skin irritation) 15 Days Qty: 28 RF: 0 (DME) blood pressure monitor [Blood Pressure Kit] Kit See Rx Instructions .ROUTE .MEDSUPPLY Qty: 1 RF: 0 albuterol sulfate 90 mcg/actuation HFA aerosol inhaler 1 inh inhalation QID 30 Days Qty: 8.5 RF: 1 betamethasone dipropionate 0.05 % cream 1 appl topical BID PRN (Reason: skin irritation) Qty: 45 RF: 0 fenofibrate nanocrystallized 145 mg tablet 145 mg PO DAILY 90 Days Qty: 90 RF: 1 atorvastatin 80 mg tablet 80 mg PO DAILY 90 Days Qty: 90 RF: 1 amlodipine 10 mg tablet 10 mg PO DAILY 90 Days Qty: 90 RF: 1 diphenhydramine HCl [Benadryl] 25 mg capsule 25 mg PO BEDTIME PRN (Reason: sleep) Qty: 10 RF: 0 cholecalciferol (vitamin D3) 25 mcg (1,000 unit) tablet 25 mcg PO DAILY 90 Days Qty: 90 RF: 2 Interventions: ED Discharge Assessment Last Done: 07/07/21 22:31 Discharge Date/Time: 07/07/21 22:33
[2021-07-07 21:55] LABS: COVID-19 Test Negative (Negative)
[2021-07-07] MEDS: predniSONE 20 MG TABLET 40 MG PO (22:31)
[2021-07-07] MEDS: Azithromycin 500 MG TABLET PO (22:31)
== END 2021-07-07 22:33 | disposition home or self-care (01) ==
PROVIDERS: Emergency Provider Internal Medicine; PCP Physician Assistant
DX: J18.9 Pneumonia, unspecified organism (principal); R07.9 Chest pain, unspecified; R06.02 Shortness of breath; R50.9 Fever, unspecified; Z20.822 Contact with and (suspected) exposure to COVID-19; Z79.899 Other long term (current) drug therapy
CPT/HCPCS: 36415; 71045; 80048; 84484; 85025; 87635; 93005; 99284; 99285

== ENCOUNTER → 2021-07-27 15:53 | Outpatient (BNVA) | payer BC, SELFPAY | PROVIDERS: PCP Physician Assistant; Referring Provider Physician Assistant; Visit Provider Nurse Practitioner Family ==

== ENCOUNTER 2021-08-11 06:51 | Outpatient (REF) | payer BC, SELFPAY ==
[2021-08-11 07:19] LABS: Hematocrit 38.8 % (42.0-52.0); Hemoglobin 12.4 g/dl (14.0-18.0); Mean Corpuscular Hemoglobin 24.8 pg (27.0-33.0); Mean Corpuscular Volume 77.4 fL (80.0-98.0); Mean Platelet Volume 10.6 fL (9.4-12.4); Platelet Count 304 X10*3/uL (160-400); Red Blood Count 5.01 X10*6/uL (4.60-5.80); White Blood Count 5.9 X10*3/uL (4.8-10.8)
[2021-08-11 07:41] LABS: Cholesterol 189 mg/dL; HDL Cholesterol 37 mg/dL; Iron 72 mcg/dL (45-160); LDL Cholesterol Calculated 109 mg/dl; Percent Iron Saturation 18 % (15-50); Total Iron Binding Capacity 394 mcg/dL (228-428); Triglycerides 215 mg/dL; Unsaturated Iron Binding 322 ug/dL
[2021-08-11 08:02] LABS: TSH reflex Free T4 2.14 uIU/mL (0.32-4.0)
== END 2021-08-11 06:52 | disposition home or self-care (01) ==
LOC: HO.LAB 06:51
PROVIDERS: PCP Physician Assistant; Visit Provider Physician Assistant
DX: D50.0 Iron deficiency anemia secondary to blood loss (chronic) (principal); D50.9 Iron deficiency anemia, unspecified; E78.1 Pure hyperglyceridemia
CPT/HCPCS: 36415; 80061; 83540; 84443; 85027

== ENCOUNTER 2022-04-30 07:57 | Outpatient (REF) | payer BC, SELFPAY ==
[2022-04-30 08:39] LABS: Hematocrit 41.4 % (42.0-52.0); Hemoglobin 13.5 g/dl (14.0-18.0); Mean Corpuscular HGB Conc 32.6 g/dl (31.0-36.0); Mean Corpuscular Hemoglobin 24.6 pg (27.0-33.0); Mean Corpuscular Volume 75.5 fL (80.0-98.0); Mean Platelet Volume 10.6 fL (9.4-12.4); Platelet Count 291 X10*3/uL (160-400); Red Blood Count 5.48 X10*6/uL (4.60-5.80); Red Cell Distribution Width 13.4 % (11.0-16.0); White Blood Count 7.9 X10*3/uL (4.8-10.8)
[2022-04-30 08:46] LABS: Alanine Aminotransferase 20 U/L (0-40); Albumin Level 4.7 g/dL (3.5-5.0); Alkaline Phosphatase 88 U/L (39-117); Anion Gap 14 (12-20); Aspartate Amino Transferase 18 U/L (5-37); Bilirubin Total 0.3 mg/dL (0.0-1.0); Blood Urea Nitrogen 14 mg/dL (9-16); Calcium 9.6 mg/dL (8.4-10.2); Carbon Dioxide 27 mmol/L (22-29); Chloride 103 mmol/L (96-108); Cholesterol 234 mg/dL; Estimated Glomerular Filt Rate > 60; Glucose Fasting 91 mg/dL (60-99); HDL Cholesterol 33 mg/dL; Potassium 4.4 mmol/L (3.3-5.1); Sodium 140 mmol/L (135-145); Total Protein 7.5 g/dL (6.5-8.0); Triglycerides 484 mg/dL
[2022-04-30 09:08] LABS: TSH reflex Free T4 1.75 uIU/mL (0.32-4.0)
[2022-04-30 09:09] LABS: Creatinine Urine 248.27 mg/dL; Microalbum/Creatinine Ratio Ur 10.4 ug/mg cr
== END 2022-04-30 07:58 | disposition home or self-care (01) ==
LOC: HO.LAB 07:57
PROVIDERS: PCP Physician Assistant; Visit Provider Physician Assistant
DX: E66.01 Morbid (severe) obesity due to excess calories (principal); I10 Essential (primary) hypertension; E78.5 Hyperlipidemia, unspecified; K62.5 Hemorrhage of anus and rectum; Z68.35 Body mass index [BMI] 35.0-35.9, adult
CPT/HCPCS: 36415; 80053; 80061; 82043; 84443; 85027

== ENCOUNTER 2022-11-11 09:07 | Outpatient (REF) | payer OTHER, SELFPAY ==
[2022-11-11 10:06] LABS: Hematocrit 41.2 % (42.0-52.0); Hemoglobin 13.5 g/dl (14.0-18.0); Mean Corpuscular HGB Conc 32.8 g/dl (31.0-36.0); Mean Corpuscular Volume 76.3 fL (80.0-98.0); Mean Platelet Volume 9.9 fL (9.4-12.4); Platelet Count 301 X10*3/uL (160-400); Red Cell Distribution Width 13.7 % (11.0-16.0); White Blood Count 7.7 X10*3/uL (4.8-10.8)
[2022-11-11 10:48] LABS: Creatinine Urine 165.18 mg/dL; Microalbum/Creatinine Ratio Ur 14.5 ug/mg cr
[2022-11-11 11:12] LABS: Alanine Aminotransferase 43 U/L (0-40); Albumin Level 4.6 g/dL (3.5-5.0); Alkaline Phosphatase 105 U/L (39-117); Anion Gap 13 (12-20); Aspartate Amino Transferase 24 U/L (5-37); Bilirubin Total 0.3 mg/dL (0.0-1.0); Blood Urea Nitrogen 11 mg/dL (9-16); Calcium 9.5 mg/dL (8.4-10.2); Carbon Dioxide 25 mmol/L (22-29); Chloride 104 mmol/L (96-108); Cholesterol 236 mg/dL; Estimated Glomerular Filt Rate > 60; Glucose Fasting 87 mg/dL (60-99); HDL Cholesterol 32 mg/dL; Lipase 34 U/L (8-78); Potassium 4.3 mmol/L (3.3-5.1); Sodium 138 mmol/L (135-145); Total Protein 7.2 g/dL (6.5-8.0); Triglycerides 480 mg/dL
[2022-11-11 11:31] LABS: TSH reflex Free T4 2.88 uIU/mL (0.32-4.0)
== END 2022-11-11 09:08 | disposition home or self-care (01) ==
LOC: HO.LAB 09:07
PROVIDERS: PCP Physician Assistant; Visit Provider Physician Assistant
DX: I10 Essential (primary) hypertension (principal); E78.1 Pure hyperglyceridemia
CPT/HCPCS: 36415; 80053; 80061; 82043; 83690; 84443; 85027

== ENCOUNTER 2023-08-14 06:27 | Outpatient (REF) | payer OTHER, SELFPAY ==
[2023-08-14 06:51] LABS: Hematocrit 43.5 % (42.0-52.0); Hemoglobin 14.7 g/dl (14.0-18.0); Mean Corpuscular HGB Conc 33.8 g/dl (31.0-36.0); Mean Corpuscular Hemoglobin 26.1 pg (27.0-33.0); Mean Corpuscular Volume 77.1 fL (80.0-98.0); Mean Platelet Volume 9.7 fL (9.4-12.4); Platelet Count 247 X10*3/uL (160-400); Red Blood Count 5.64 X10*6/uL (4.60-5.80); Red Cell Distribution Width 13.5 % (11.0-16.0); White Blood Count 7.7 X10*3/uL (4.8-10.8)
[2023-08-14 07:07] LABS: Alanine Aminotransferase 48 U/L (0-40); Albumin Level 4.2 g/dL (3.5-5.0); Alkaline Phosphatase 91 U/L (39-117); Anion Gap 18 (12-20); Aspartate Amino Transferase 34 U/L (5-37); Bilirubin Total 0.3 mg/dL (0.0-1.0); Blood Urea Nitrogen 7 mg/dL (9-16); Calcium 9.9 mg/dL (8.4-10.2); Carbon Dioxide 23 mmol/L (22-29); Chloride 103 mmol/L (96-108); Cholesterol 248 mg/dL (<200); Estimated Glomerular Filt Rate > 60; Glucose Fasting 106 mg/dL (60-99); HDL Cholesterol 32 mg/dL (>40); Iron 72 mcg/dL (45-160); Percent Iron Saturation 24 % (15-50); Potassium 3.7 mmol/L (3.3-5.1); Sodium 140 mmol/L (135-145); Total Iron Binding Capacity 302 mcg/dL (228-428); Total Protein 7.5 g/dL (6.5-8.0); Triglycerides 950 mg/dL (<150); Unsaturated Iron Binding 230 ug/dL
== END 2023-08-14 06:28 | disposition home or self-care (01) ==
LOC: HO.LAB 06:27
PROVIDERS: PCP Physician Assistant; Visit Provider Physician Assistant
DX: I10 Essential (primary) hypertension (principal); D50.0 Iron deficiency anemia secondary to blood loss (chronic); E78.1 Pure hyperglyceridemia
CPT/HCPCS: 36415; 80053; 80061; 83540; 85027

== ENCOUNTER 2023-08-16 15:05 | Outpatient (AMB) | payer OTHER, SELFPAY ==
[2023-08-16 15:32] VITALS: BP 144/98; PULSE 88; O2SAT 98; BMI 37.5
--- NOTE | 2023-08-16 15:32 | MHC.PC.OV ---
Vital Signs 08/16/23 15:32 Height 6 ft 2 in Weight 292 lb 4 oz BMI 37.5 BP 144/98 H Blood Pressure Location Lt brachial Position Sitting Pulse 88 Pulse Source Pulse Oximeter Pulse Oximetry (%) 98 Oxygen Delivery Method Room Air Intake Visit Reasons: 3 month follow up, high bp Intake Note: Patient is here for 3 months BP F/U. Autopsy Assistant Required: No Accompanied by: Self / Same As Patient Allergies hydroxyzine Adverse Reaction (Unknown, Verified 08/16/23 15:51) sleepiness lisinopril Adverse Reaction (Unknown, Verified 08/16/23 15:51) dry cough, pruritus Medication List - Last Reconciled 08/16/23 by Jose Antonio Bryant PA-C atorvastatin 80 mg PO DAILY 90 days blood pressure test kit-large As directed cholecalciferol (vitamin D3) 25 mcg PO DAILY 90 days docusate sodium 100 mg PO BEDTIME ferrous sulfate 325 mg PO BID 30 days losartan 50 mg PO DAILY 30 days Tobacco use date assessed: 08/16/23 Dental Screening Dental Screen Date: 08/16/23 Did you have a dental visit in the last 12 months?: Yes Did you have a dental problem in the last 6 months where you did not have access to dental care?: No Was dental information given to patient?: Patient has dentist HPI 3 month follow up, high bp HPI Details Patient 43-year-old male here today for follow up.? Has a past medical history significant for hypertension, hypertriglyceridemia, obese, history of?iron deficiency anemia(GI blood loss). .. Hypertension: ? Today's blood pressure acceptable in office slightly elevated.? Patient continues on losartan with good effect.? otherwise denies any chest discomfort, headaches, vision issues. .. ? HYpERtRigLyCErIdEMiA:? Continues on high-dose statin therapy and total cholesterol borderline high. He reports he is somewhat compliant taking his statin medication on a daily basis.? 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 AGAIN AND STRONGLY ADVISED TO REDUCE HIGH CHOLESTEROL FOODS IN HIS DIET. Not interested in seeing a dietitian at this time. Was on fenofibrate in the past, he is willing to restart fenofibrate temporarily to reduce his triglycerides. [facility] Medical History Anemia Contact dermatitis Cough High cholesterol Hypertension Iron deficiency anemia Pedal edema Pruritus Surgical History History of hemorrhoidectomy Hx of colonoscopy H/O hand surgery History of tonsillectomy Family History Mother Medical history unknown Father Prostate cancer Paternal Uncle Prostate cancer Paternal Grandfather Prostate cancer Diabetes Hypertension Sister Hypothyroid Social History Housing: Apartment Are you a primary career services director to a significant other at home: No Do you presently have visiting nurse or other home services: No Alcohol intake: current Alcohol intake frequency: holidays/special occasions only Comment: small amt red staining to abd pad Patient Tobacco Use Status: Never used Tobacco e-Cigarette/Vaping Use: Never Used Second Hand Smoke Exposure: No Current occupational status: employed Current occupation: crew truck driver Cognitive needs: No Hearing needs: No Vision needs: No Questionnaire PHQ-9 Over the last 2 weeks, how often have you been bothered by any of the following problems? 1. Little interest or pleasure in doing things: not at all 2. Feeling down, depressed, or hopeless: not at all 3. Trouble falling or staying asleep, or sleeping too much: not at all 4. Feeling tired or having little energy: not at all 5. Poor appetite or overeating: not at all 6. Feeling bad about yourself - or that you are a failure or have let yourself or your family down: not at all 7. Trouble concentrating on things, such as reading the newspaper or watching television: not at all 8. Moving or speaking so slowly that other people could have noticed. Or the opposite - being so fidgety or restless that you have been moving around a lot more than usual: not at all 9. Thoughts that you would be better off or of hurting yourself in some way: not at all Total score: 0 Depression Screening Interpretation: Negative Depression Screening Done: Yes 52384 - PHQ-9 Billing: Yes Source: Developed by Drs. Mihir Ash, Patricia Tatum, Marcell Contreras and colleagues, with an educational belem from [employer]. Thrive Questionnaire Date Thrive assessed: 08/16/23 I am a: Patient What is your living situation today?: I have a steady place to live Within the past 12 months, did the food you bought not last and you didn't have the money to get more?: Never true Within the past 12 months, did you worry whether your food would run out before you got money to buy more?: Never true Do you have trouble paying for medicines?: No Do you have trouble getting transportation to medical appointments?: No Do you have trouble paying your heating and electricity bill?: No Do you have trouble taking care of your child, family member or friend?: No Do you have trouble with day-to-day activities such as bathing, preparing meals, shopping, managing finances, etc.?: No Are you currently unemployed and looking for a job?: No Are you interested in more education?: No Please select the resources that you would like help with: None Currently or been in a relationship where the following occur: no concerns reported THRIVE Score: 0 AUDIT C Alcohol Use Questionnaire (AUDIT-C) 1. How often do you have a drink containing alcohol?: 2-3 times a week 2. How many drinks containing alcohol do you have on a typical day when you are drinking?: 3 or 4 3. How often do you have six or more drinks on one occasion?: Never Total Score: 4 DLEMA-7 AMB Questionnaire DELMA-7 Date DELMA - 7 assessed: 08/16/23 Feeling nervous, anxious, or on edge: 0 = Not at all Not being able to stop or control worryin = Not at all Worrying too much about different things: 0 = Not at all Trouble relaxin = Not at all Being so restless that it is hard to sit still: 0 = Not at all Becoming easily annoyed or irritable: 0 = Not at all Feeling afraid as if something awful might happen: 0 = Not at all Total DELMA-7 score (0-4 normal; 5-9 mild; 10-14 moderate; 15-21 severe): 0 Source: Developed by Drs. Mihir Ash, Patricia Tatum, Marcell Contreras and colleagues, with an educational belem from [employer]. DELMA-7 Assessment Billing DELMA-7 Assessment Tool: DELMA-7 Assessment 40672 Review of Systems Const Denies headache(s) Eyes Denies loss of vision ENT Denies vertigo, Denies dizziness, Denies headache(s) and Denies sore throat Card Denies chest pain, Denies leg edema and Denies lightheadedness Resp Denies cough, Denies hemoptysis and Denies wheezing GI Denies abdominal pain, Denies melena, Denies constipation, Denies diarrhea and Denies vomiting Denies dysuria, Denies urinary frequency and Denies urinary urgency Musc Denies arthralgias, Denies joint swelling, Denies numbness and Denies tingling Neuro Denies Abnormal speech present, Denies behavioral changes, Denies vertigo, Denies dizziness, Denies headache(s), Denies loss of vision, Denies memory loss, Denies numbness and Denies tingling Psych Denies anxiety, Denies behavioral changes, Denies depression, Denies memory loss and Denies panic attacks Reg/Lymph Denies easy bleeding and Denies easy bruising Aller/Immun Denies wheezing Physical exam (Primary Care) Vital Signs: Last Vital Signs Pulse 88 08/16/23 15:32 BP 144/98 H 08/16/23 15:32 Pulse Ox 98 08/16/23 15:32 Oxygen Delivery Method Room Air 08/16/23 15:32 BMI result Body Mass Index 37.5 BMI Assessment/Plan discussion: High Tobacco/Smoking Status: Tobacco use Status Tobacco use date assessed 08/16/23 08/16/23 15:42 Patient Tobacco Use Status Never used Tobacco 08/16/23 15:36 e-Cigarette/Vaping Use Never Used 08/16/23 15:36 PHQ-9: PHQ-9 Score PHQ-9: Total score 0 08/16/23 15:50 Depression Screening Interpretation: Negative Thrive Assessment: Date of Thrive Assessment Date Thrive assessed 08/16/23 08/16/23 15:36 Currently or been in a relationship where the following occur: no concerns reported Const Other: Obese General: healthy appearing, no acute distress, alert and awake Nutritional Appearance: well nourished Orientation/consciousness: oriented to person, oriented to place and oriented to time HENMT Ears: TM's normal bilaterally General nose exam: Normal nasal mucous membranes and turbinates present Eyes Conjunctivae: conjunctivae normal Sclerae: sclerae normal Pupils: Equal, round and reactive pupils present Neck Neck: Yes no lymphadenopathy and Yes no JVD Thyroid: Thyroid normal Carotids: no bruits Resp Effort & Inspection: normal respiratory effort and not tachypneic Auscultation: no crackles, no rales, no rhonchi and no wheezes Cardio Rate: regular rate Rhythm: regular rhythm Heart sounds: no murmurs and normal S1 and S2 GI Palpation (GI): Soft to palpation, nontender, no hepatomegaly and no splenomegaly Auscultation: normal bowel sounds Skin General skin exam: no rashes or lesions noted and dry skin Neuro General: oriented to person, oriented to place and oriented to time Cranial nerves: Yes Equal, round and reactive pupils present Speech: No Abnormal speech present Gait exam (Neuro): Normal gait present Motor exam (neuro): no tremor noted Extrem Right upper extremity: full ROM Left upper extremity: full ROM Right lower extremity: full ROM; no edema Left lower extremity: full ROM; no edema Psych Mental Status: mental status grossly normal Speech and movement: Normal speech and movement present Affect: normal affect Attitude: cooperative Thought process: Normal thought process present Office Procedures Flu Questionnaire Does the patient have a severe egg allergy?: No Does the patient have severe life threatening allergies?: No Does the patient have a fever or illness today?: No Has the patient ever had Guillain-[place] Syndrome?: No Has the patient ever had any past reaction to a flu shot?: No Immunizations flu vacc [id number] 6mos up(PF) 60 mcg(15 mcgx4)/0.5 mL IM syringe Performing Provider: Jose Antonio Bryant PA-C Performing Location: [facility] Administered by: CALLY Spencer on 08/16/23 15:40 Dose Route Admin Location Dispensed Lot Number Expiration Date NDC Supervisor [employer] 0.5 mL IM Left Deltoid 0.5 mL [id number] 01/14/24 99642-999-90 [employer] VIS Given Date VIS Provided VIS Publication Date 08/16/23 Single Vaccine 21 Eligibility Eligibility Date Funding Source Not VFC Eligible 08/16/23 Private Assessment and Plan Assessment & Plan (1) HTN (hypertension): Code(s): I10 - Essential (primary) hypertension Qualifiers: Hypertension type: essential hypertension Qualified Code(s): I10 - Essential (primary) hypertension Plan: Patient's blood pressure acceptable today in office slightly elevated. Has gained some weight since last office visit. Will continue his current dose of antihypertensive medication with goal blood pressure to be below 140/90. (2) Obese: Code(s): E66.9 - Obesity, unspecified Qualifiers: Body mass index: BMI 34.0-34.9 Obesity classification: adult class 1 (BMI 30 - 34.9) Obesity type: due to excess calories Serious obesity comorbidity presence: without serious comorbidity Qualified Code(s): E66.09 - Other obesity due to excess calories; Z68.34 - Body mass index [BMI] 34.0-34.9, adult Plan: Patient does understand his BMI is well over 30, has gained weight since last office visit does report dietary indiscretion. He will work on lifestyle modifications on being more physically active and adapting to better eating habits to reduce his weight (3) Hyperlipidemia: Code(s): E78.5 - Hyperlipidemia, unspecified Qualifiers: Hyperlipidemia type: mixed hyperlipidemia Qualified Code(s): E78.2 - Mixed hyperlipidemia Plan: Only partially compliant with taking his statin medication daily. Triglycerides over 900 Will restart fenofibrate 145 mg. Will hold atorvastatin for now. Recheck fasting inform months (4) Anemia: Code(s): D64.9 - Anemia, unspecified Qualifiers: Anemia type: iron deficiency Iron deficiency anemia type: chronic blood loss Qualified Code(s): D50.0 - Iron deficiency anemia secondary to blood loss (chronic) Plan: Patient's anemia improved. Has stopped taking iron. He has no further rectal bleeding. Orders: Orders Influenza [id number] Immunization 08/16/23 Z23 - Encounter for immunization Lipid Panel 4 Months E78.1 - Pure hyperglyceridemia Comprehensive [place]. Panel Fast 4 Months E78.1 - Pure hyperglyceridemia Medications: New fenofibrate nanocrystallized 145 mg PO DAILY 90 days 90 tabs 1RF E78.1 - Pure hyperglyceridemia Discontinued ferrous sulfate Discontinued Reason: Doctor's Order 325 mg PO BID 30 days 60 tabs 4RF D50.0 - Iron deficiency anemia secondary to blood loss (chronic), D50.9 - Iron deficiency anemia, unspecified On Hold atorvastatin Hold Comment: Doctor's Order 80 mg PO DAILY 90 days 90 tabs 1RF Coding Level of Care Code Est Pt Level 4 (05590) Diagnoses Essential hypertension I10 Hypertension type: essential hypertension Class 1 obesity due to excess calories without serious comorbidity with body mass index (BMI) of 34.0 to 34.9 in adult E66.09; Z68.34 Body mass index: BMI 34.0-34.9 Obesity classification: adult class 1 (BMI 30 - 34.9) Obesity type: due to excess calories Serious obesity comorbidity presence: without serious comorbidity Mixed hyperlipidemia E78.2 Hyperlipidemia type: mixed hyperlipidemia Iron deficiency anemia due to chronic blood loss D50.0 Anemia type: iron deficiency Iron deficiency anemia type: chronic blood loss Additional Codes DELMA-7 Assessment Billing - DELMA-7 Assessment Tool: DELMA-7 Assessment 79411 ([id number])
== END 2023-08-16 16:03 | disposition home or self-care (01) ==
PROVIDERS: PCP Physician Assistant; Visit Provider Physician Assistant
DX: I10 Essential (primary) hypertension (principal); E66.09 Other obesity due to excess calories; Z68.34 Body mass index [BMI] 34.0-34.9, adult; E78.2 Mixed hyperlipidemia; D50.0 Iron deficiency anemia secondary to blood loss (chronic); Z80.42 Family history of malignant neoplasm of prostate
CPT/HCPCS: 90471; 90686; 99214

== ENCOUNTER 2023-12-12 12:30 | Outpatient (REF) | payer OTHER, SELFPAY ==
[2023-12-12 13:42] LABS: Alanine Aminotransferase 43 U/L (0-40); Albumin Level 4.7 g/dL (3.5-5.0); Alkaline Phosphatase 70 U/L (39-117); Anion Gap 12 (12-20); Aspartate Amino Transferase 32 U/L (5-37); Bilirubin Total 0.3 mg/dL (0.0-1.0); Blood Urea Nitrogen 12 mg/dL (9-16); Calcium 9.7 mg/dL (8.4-10.2); Carbon Dioxide 25 mmol/L (22-29); Chloride 107 mmol/L (96-108); Cholesterol 267 mg/dL (<200); Estimated Glomerular Filt Rate > 60; Glucose Fasting 93 mg/dL (60-99); HDL Cholesterol 42 mg/dL (>40); LDL Cholesterol Calculated 149 mg/dL (<100); Sodium 140 mmol/L (135-145); Total Protein 7.5 g/dL (6.5-8.0); Triglycerides 384 mg/dL (<150)
== END 2023-12-12 12:31 | disposition home or self-care (01) ==
LOC: HO.LAB 12:30
PROVIDERS: PCP Physician Assistant; Visit Provider Physician Assistant
DX: E78.1 Pure hyperglyceridemia (principal)
CPT/HCPCS: 36415; 80053; 80061

== ENCOUNTER 2024-01-10 15:04 | Outpatient (AMB) | payer OTHER, SELFPAY ==
--- NOTE | 2024-01-10 15:12 | MHC.PC.OV ---
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 School Required: No [employer]: Not Required per policy Accompanied by: Self / Same As Patient Allergies hydroxyzine Adverse Reaction (Unknown, Verified 01/10/24 15:19) sleepiness lisinopril Adverse Reaction (Unknown, Verified 01/10/24 15:19) dry cough, pruritus Medication List - Last Reconciled 01/10/24 by Jose Antonio Bryant PA-C atorvastatin 80 mg PO DAILY 90 days blood pressure test kit-large As directed cholecalciferol (vitamin D3) 25 mcg PO DAILY 90 days docusate sodium 100 mg PO BEDTIME fenofibrate nanocrystallized 145 mg PO DAILY 90 days losartan 50 mg PO DAILY 30 days Tobacco use date assessed: 08/16/23 Dental Screening Dental Screen Date: 08/16/23 HPI 4 month f/u Follow-up cholesterol HPI Details Patient 43-year-old male here today for follow up.? Has a past medical history significant for hypertension, hypertriglyceridemia, obese, history of?iron deficiency anemia(GI blood loss). .. Hypertension: ? Today's blood pressure acceptable in office.? Patient continues on losartan with good effect.? otherwise denies any chest discomfort, headaches, vision issues. .. ? HYpERtRigLyCErIdEMiA:? Has been holding high dose statin therapy. Has restarted fenofibrate . His triglycerides much improved since starting fenofibrate. 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 AGAIN AND STRONGLY ADVISED TO REDUCE HIGH CHOLESTEROL FOODS IN HIS DIET. Not interested in seeing a dietitian at this time. Will try to set him up with a dietitian to discuss meal planning and low-cholesterol diet Laboratory Tests 04/30/22 11/11/22 08/14/23 08:06 09:22 06:39 RBC 5.40 5.64 Hgb 13.5 L 13.5 L 14.7 Hct 43.5 MCV 76.3 L Creatinine 0.99 Triglycerides 480 950 H Cholesterol 236 248 H LDL Cholesterol, C alc TSH 2.88 12/12/23 12:45 RBC Hgb Hct MCV Creatinine Triglycerides 384 H Cholesterol 267 H LDL Cholesterol, C alc 149 H TSH PFSH Medical History Pedal edema Pruritus Contact dermatitis Cough Anemia High cholesterol Hypertension Iron deficiency anemia Surgical History History of hemorrhoidectomy Hx of colonoscopy H/O hand surgery History of tonsillectomy Family History Mother Medical history unknown Father Prostate cancer Paternal Uncle Prostate cancer Paternal Grandfather Prostate cancer Diabetes Hypertension Sister Hypothyroid Social History Housing: Apartment Are you a primary point of care technician to a significant other at home: No Do you presently have visiting nurse or other home services: No Alcohol intake: current Alcohol intake frequency: holidays/special occasions only Comment: small amt red staining to abd pad Patient Tobacco Use Status: Never used Tobacco e-Cigarette/Vaping Use: Never Used Second Hand Smoke Exposure: No Current occupational status: employed Current occupation: local company flatbed truck driver Cognitive needs: No Hearing needs: No Vision needs: No Questionnaire Thrive Questionnaire Date Thrive assessed: 08/16/23 DELMA-7 AMB Questionnaire DELMA-7 Date DELMA - 7 assessed: 08/16/23 Source: Developed by Drs. Mihir Ash, Patricia Tatum, Marcell Contreras and colleagues, with an educational belem from [employer]. Review of Systems Const Denies headache(s) Eyes Denies loss of vision ENT Denies vertigo, Denies dizziness, Denies headache(s) and Denies sore throat Card Denies chest pain, Denies leg edema and Denies lightheadedness Resp Denies cough, Denies hemoptysis and Denies wheezing GI Denies abdominal pain, Denies melena, Denies constipation, Denies diarrhea and Denies vomiting Denies dysuria, Denies urinary frequency and Denies urinary urgency Musc Denies arthralgias, Denies joint swelling, Denies numbness and Denies tingling Neuro Denies Abnormal speech present, Denies behavioral changes, Denies vertigo, Denies dizziness, Denies headache(s), Denies loss of vision, Denies memory loss, Denies numbness and Denies tingling Psych Denies anxiety, Denies behavioral changes, Denies depression, Denies memory loss and Denies panic attacks Reg/Lymph Denies easy bleeding and Denies easy bruising Aller/Immun Denies wheezing Physical exam (Primary Care) Vital Signs: Last Vital Signs Pulse 74 01/10/24 15:15 BP 134/80 01/10/24 15:15 Pulse Ox 98 01/10/24 15:15 Oxygen Delivery Method Room Air 01/10/24 15:15 BMI result Body Mass Index 37.8 Tobacco/Smoking Status: Tobacco use Status Tobacco use date assessed 08/16/23 01/10/24 15:13 Patient Tobacco Use Status Never used Tobacco 01/10/24 15:13 e-Cigarette/Vaping Use Never Used 01/10/24 15:13 Thrive Assessment: Date of Thrive Assessment Date Thrive assessed 08/16/23 01/10/24 15:13 Const General: healthy appearing, no acute distress, alert and awake Nutritional Appearance: well nourished Orientation/consciousness: oriented to person, oriented to place and oriented to time HENMT Ears: TM's normal bilaterally General nose exam: Normal nasal mucous membranes and turbinates present Eyes Conjunctivae: conjunctivae normal Sclerae: sclerae normal Pupils: Equal, round and reactive pupils present Neck Neck: Yes no lymphadenopathy and Yes no JVD Thyroid: Thyroid normal Carotids: no bruits Resp Effort & Inspection: normal respiratory effort and not tachypneic Auscultation: no crackles, no rales, no rhonchi and no wheezes Cardio Rate: regular rate Rhythm: regular rhythm Heart sounds: no murmurs and normal S1 and S2 GI Palpation (GI): Soft to palpation, nontender, no hepatomegaly and no splenomegaly Auscultation: normal bowel sounds Skin General skin exam: no rashes or lesions noted and dry skin Neuro General: oriented to person, oriented to place and oriented to time Cranial nerves: Yes Equal, round and reactive pupils present Speech: No Abnormal speech present Gait exam (Neuro): Normal gait present Motor exam (neuro): no tremor noted Extrem Right upper extremity: full ROM Left upper extremity: full ROM Right lower extremity: full ROM; no edema Left lower extremity: full ROM; no edema Psych Mental Status: mental status grossly normal Speech and movement: Normal speech and movement present Affect: normal affect Attitude: cooperative Thought process: Normal thought process present Assessment and Plan Assessment & Plan (1) HTN (hypertension): Code(s): I10 - Essential (primary) hypertension Qualifiers: Hypertension type: essential hypertension Qualified Code(s): I10 - Essential (primary) hypertension Plan: Patient's blood pressure acceptable today in office Has gained some weight since last office visit. Will continue his current dose of antihypertensive medication with goal blood pressure to be below 140/90. (2) Hyperlipidemia: Code(s): E78.5 - Hyperlipidemia, unspecified Qualifiers: Hyperlipidemia type: mixed hyperlipidemia Qualified Code(s): E78.2 - Mixed hyperlipidemia Plan: Only partially compliant with taking his statin medication daily. Has restarted fenofibrate and triglycerides reduced from 900 to 350. 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 He is willing to speak with the dietitian. (3) Obese: Code(s): E66.9 - Obesity, unspecified Qualifiers: Body mass index: BMI 34.0-34.9 Obesity classification: adult class 1 (BMI 30 - 34.9) Obesity type: due to excess calories Serious obesity comorbidity presence: without serious comorbidity Qualified Code(s): E66.09 - Other obesity due to excess calories; Z68.34 - Body mass index [BMI] 34.0-34.9, adult Plan: Has unfortunately gained weight since last office visit. Patient does understand his BMI is well over 30, has gained weight since last office visit does report dietary indiscretion. He will work on lifestyle modifications on being more physically active and adapting to better eating habits to reduce his weight Orders: Orders Complete Blood Count no Diff 01/10/24 D50.0 - Iron deficiency anemia secondary to blood loss (chronic) Lipid Panel 01/10/24 E78.1 - Pure hyperglyceridemia Comprehensive [place]. Panel Fast 01/10/24 E78.1 - Pure hyperglyceridemia Referrals Nutrition/Dietitian Referral E78.1 - Pure hyperglyceridemia Medications: New clotrimazole-betamethasone 1-0.05 % 1 appl topical BID 45 grams 2RF 30 days B35.1 - Tinea unguium Refilled fenofibrate nanocrystallized 145 mg PO DAILY 90 tabs 2RF 90 days E78.1 - Pure hyperglyceridemia losartan 50 mg PO DAILY 30 tabs 3RF 30 days I10 - Essential (primary) hypertension Patient Instructions: Goals: Controlled cholesterol, triglycerides to be below 250, total cholesterol to be below 230 Barriers: Adherence to healthy eating habits and physical activity Coding Level of Care Code Est Pt Level 4 (95574) Complex EM visit Add On G2211 Diagnoses Essential hypertension I10 Hypertension type: essential hypertension Mixed hyperlipidemia E78.2 Hyperlipidemia type: mixed hyperlipidemia Class 1 obesity due to excess calories without serious comorbidity with body mass index (BMI) of 34.0 to 34.9 in adult E66.09; Z68.34 Body mass index: BMI 34.0-34.9 Obesity classification: adult class 1 (BMI 30 - 34.9) Obesity type: due to excess calories Serious obesity comorbidity presence: without serious comorbidity
[2024-01-10 15:15] VITALS: BP 134/80; PULSE 74; O2SAT 98; BMI 37.8
== END 2024-01-10 15:29 | disposition home or self-care (01) ==
PROVIDERS: PCP Physician Assistant; Visit Provider Physician Assistant
DX: I10 Essential (primary) hypertension (principal); E78.2 Mixed hyperlipidemia; E66.09 Other obesity due to excess calories; Z68.34 Body mass index [BMI] 34.0-34.9, adult
CPT/HCPCS: 99214; G2211

== ENCOUNTER 2024-05-18 07:32 | Outpatient (REF) | payer OTHER, SELFPAY ==
[2024-05-18 08:08] LABS: Hematocrit 41.6 % (42.0-52.0); Hemoglobin 13.7 g/dl (14.0-18.0); Mean Corpuscular HGB Conc 32.9 g/dl (31.0-36.0); Mean Corpuscular Hemoglobin 26.3 pg (27.0-33.0); Mean Platelet Volume 10.5 fL (9.4-12.4); Platelet Count 262 X10*3/uL (160-400); Red Cell Distribution Width 13.2 % (11.0-16.0); White Blood Count 6.6 X10*3/uL (4.8-10.8)
[2024-05-18 08:32] LABS: Alanine Aminotransferase 42 U/L (0-40); Albumin Level 4.3 g/dL (3.5-5.0); Alkaline Phosphatase 68 U/L (39-117); Anion Gap 12 (12-20); Aspartate Amino Transferase 36 U/L (5-37); Bilirubin Total 0.3 mg/dL (0.0-1.0); Blood Urea Nitrogen 13 mg/dL (9-16); Calcium 9.3 mg/dL (8.4-10.2); Carbon Dioxide 24 mmol/L (22-29); Chloride 107 mmol/L (96-108); Cholesterol 258 mg/dL (<200); Estimated Glomerular Filt Rate > 60; Glucose Fasting 101 mg/dL (60-99); HDL Cholesterol 38 mg/dL (>40); LDL Cholesterol Calculated 147 mg/dL (<100); Sodium 139 mmol/L (135-145); Total Protein 6.8 g/dL (6.5-8.0); Triglycerides 367 mg/dL (<150)
== END 2024-05-18 07:33 | disposition home or self-care (01) ==
LOC: HO.LAB 07:32
PROVIDERS: PCP Physician Assistant; Visit Provider Physician Assistant
DX: D50.0 Iron deficiency anemia secondary to blood loss (chronic) (principal); E78.1 Pure hyperglyceridemia
CPT/HCPCS: 36415; 80053; 80061; 85027

== ENCOUNTER 2024-05-21 15:01 | Outpatient (AMB) | payer OTHER, SELFPAY ==
[2024-05-21 15:05] VITALS: BP 122/70; PULSE 72; O2SAT 96; BMI 37.8
--- NOTE | 2024-05-21 15:05 | MHC.PC.OV ---
Vital Signs 05/21/24 15:05 Height 6 ft 2 in Weight 294 lb 4 oz BMI 37.8 BP 122/70 Blood Pressure Location Lt brachial Position Sitting Pulse 72 Pulse Source Pulse Oximeter Pulse Oximetry (%) 96 Oxygen Delivery Method Room Air Intake Visit Reasons: ANNUAL Allergies hydroxyzine Adverse Reaction (Unknown, Verified 05/21/24 15:42) sleepiness lisinopril Adverse Reaction (Unknown, Verified 05/21/24 15:42) dry cough, pruritus Medication List - Last Reconciled 05/21/24 by Jose Antonio Bryant PA-C atorvastatin 80 mg PO DAILY 90 days blood pressure test kit-large As directed cholecalciferol (vitamin D3) 25 mcg PO DAILY 90 days clotrimazole-betamethasone 1-0.05 % 1 appl topical BID 30 days docusate sodium 100 mg PO BEDTIME fenofibrate nanocrystallized 145 mg PO DAILY 90 days losartan 50 mg PO DAILY 30 days Tobacco use date assessed: 08/16/23 Dental Screening Dental Screen Date: 08/16/23 HPI ANNUAL HPI Details Patient 43-year-old male here today for a routine annual physical.? Has a past medical history significant for hypertension, hypertriglyceridemia, obese, history of?iron deficiency anemia(GI blood loss). Concern--> patient reports feeling some daytime somnolence and fatigue. Does have risk for obstructive sleep apnea in his willing to get evaluated for obstructive sleep apnea. Of note patient does have a slight anemia that has been a chronic finding for the last couple years. Does have history of bleeding hemorrhoids that do intermittently bleed. .. Hypertension: ? Today's blood pressure acceptable in office.? Patient continues on losartan with good effect.? otherwise denies any chest discomfort, headaches, vision issues. .. ? HYpERtRigLyCErIdEMiA:? Has been holding high dose statin therapy. Has restarted fenofibrate . His triglycerides have improved since starting fenofibrate. 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 AGAIN AND STRONGLY ADVISED TO REDUCE HIGH CHOLESTEROL FOODS IN HIS DIET. Not interested in seeing a dietitian at this time. VAccine : Up-to-date COVID vaccine, tetanus vaccine and pneumonia vaccine. Colorectal cancer screening-is up-to-date with colon cancer screening [facility] Medical History Pedal edema Pruritus Contact dermatitis Cough Anemia High cholesterol Hypertension Iron deficiency anemia Surgical History History of hemorrhoidectomy Hx of colonoscopy H/O hand surgery History of tonsillectomy Family History Mother Medical history unknown Father Prostate cancer Paternal Uncle Prostate cancer Paternal Grandfather Prostate cancer Diabetes Hypertension Sister Hypothyroid Social History (Updated 05/21/24 @ 15:44 by Jose Antonio Bryant PA-C) Housing: Apartment Are you a primary aged or disabled carer to a significant other at home: No Do you presently have visiting nurse or other home services: No Alcohol intake: current Alcohol intake frequency: a few times a month Comment: small amt red staining to abd pad Patient Tobacco Use Status: Never used Tobacco e-Cigarette/Vaping Use: Never Used Second Hand Smoke Exposure: No Current occupational status: employed Current occupation: national dedicated truck driver Cognitive needs: No Hearing needs: No Vision needs: No Questionnaire PHQ-9 Over the last 2 weeks, how often have you been bothered by any of the following problems? 1. Little interest or pleasure in doing things: not at all 2. Feeling down, depressed, or hopeless: not at all 3. Trouble falling or staying asleep, or sleeping too much: not at all 4. Feeling tired or having little energy: several days 5. Poor appetite or overeating: not at all 6. Feeling bad about yourself - or that you are a failure or have let yourself or your family down: not at all 7. Trouble concentrating on things, such as reading the newspaper or watching television: not at all 8. Moving or speaking so slowly that other people could have noticed. Or the opposite - being so fidgety or restless that you have been moving around a lot more than usual: not at all 9. Thoughts that you would be better off or of hurting yourself in some way: not at all Total score: 1 Depression Screening Interpretation: Negative Depression Screening Done: Yes 94668 - PHQ-9 Billing: Yes Source: Developed by Drs. Mihir Ash, Patricia Tatum, Marcell Contreras and colleagues, with an educational belem from [employer]. Thrive Questionnaire Date Thrive assessed: 08/16/23 I am a: Patient What is your living situation today?: I have a steady place to live Within the past 12 months, did the food you bought not last and you didn't have the money to get more?: I choose not to answer this question Within the past 12 months, did you worry whether your food would run out before you got money to buy more?: I choose not to answer this question Do you have trouble paying for medicines?: No Do you have trouble getting transportation to medical appointments?: No Do you have trouble paying your heating and electricity bill?: No Do you have trouble taking care of your child, family member or friend?: No Do you have trouble with day-to-day activities such as bathing, preparing meals, shopping, managing finances, etc.?: No Are you currently unemployed and looking for a job?: No Are you interested in more education?: No Please select the resources that you would like help with: None Currently or been in a relationship where the following occur: No concerns reported THRIVE Score: 0 AUDIT C Alcohol Use Questionnaire (AUDIT-C) 1. How often do you have a drink containing alcohol?: 2-4 times a month 2. How many drinks containing alcohol do you have on a typical day when you are drinking?: 3 or 4 3. How often do you have six or more drinks on one occasion?: Never Total Score: 3 DELMA-7 AMB Questionnaire DELMA-7 Date DELMA - 7 assessed: 08/16/23 Feeling nervous, anxious, or on edge: 0 = Not at all Not being able to stop or control worryin = Not at all Worrying too much about different things: 0 = Not at all Trouble relaxin = Not at all Being so restless that it is hard to sit still: 0 = Not at all Becoming easily annoyed or irritable: 0 = Not at all Feeling afraid as if something awful might happen: 0 = Not at all Total DELMA-7 score (0-4 normal; 5-9 mild; 10-14 moderate; 15-21 severe): 0 Source: Developed by Drs. Mihir Ash, Patricia Tatum, Marcell Contreras and colleagues, with an educational belem from [employer]. DELMA-7 Assessment Billing DELMA-7 Assessment Tool: DELMA-7 Assessment 10303 Review of Systems Const Denies body aches, Denies chills, Denies excessive sweating, Denies fatigue, Denies fever(s) and Denies headache(s) Eyes Denies blurry vision ENT Denies dysphagia, Denies vertigo, Denies dizziness, Denies headache(s), Denies hearing loss and Denies tinnitus Card Denies chest pain, Denies chest pain with activity, Denies syncope, Denies irregular heart rhythm and Denies dyspnea Resp Denies chest congestion, Denies cough, Denies hemoptysis, Denies dyspnea and Denies wheezing GI Denies abdominal pain, Denies melena, Denies hematochezia, Denies coffee ground emesis, Denies dysphagia, Denies diarrhea, Denies nausea and Denies vomiting Denies difficulty urinating, Denies dysuria, Denies urinary frequency, Denies urinary hesitancy and Denies urinary urgency Musc Denies arthralgias, Denies limited range of motion, Denies muscle cramps and Denies muscle weakness Skin/Breast Denies rash and Denies skin ulcer Neuro Denies Abnormal speech present, Denies confusion, Denies vertigo, Denies dizziness, Denies syncope, Denies headache(s), Denies memory loss and Denies seizure-like activity Psych Denies anxiety, Denies confusion, Denies depression, Denies memory loss, Denies panic attacks and Denies paranoia Endo Denies excessive sweating, Denies fatigue, Denies flushing, Denies polydipsia and Denies polyuria Aller/Immun Denies wheezing Physical exam (Primary Care) Vital Signs: Last Vital Signs Pulse 72 05/21/24 15:05 BP 122/70 05/21/24 15:05 Pulse Ox 96 05/21/24 15:05 Oxygen Delivery Method Room Air 05/21/24 15:05 BMI result Body Mass Index 37.8 Tobacco/Smoking Status: Tobacco use Status Tobacco use date assessed 08/16/23 05/21/24 15:05 Patient Tobacco Use Status Never used Tobacco 05/21/24 15:44 e-Cigarette/Vaping Use Never Used 05/21/24 15:44 PHQ-9: PHQ-9 Score PHQ-9: Total score 1 05/21/24 15:44 Depression Screening Interpretation: Negative Thrive Assessment: Date of Thrive Assessment Date Thrive assessed 08/16/23 05/21/24 15:05 Currently or been in a relationship where the following occur: No concerns reported Const General: cooperative, comfortable, no acute distress, alert and awake; No confusion Orientation/consciousness: oriented to person, oriented to place, patient oriented x3 and No confusion HENMT Head: Yes normocephalic Ears: external ears normal and TM's normal bilaterally Face and sinus: No sinus tenderness Mouth: Normal oral and palatal mucosa present and tongue normal Teeth and gingiva: dentition normal and gingiva normal Throat: Yes posterior oropharynx normal, Yes tonsils normal and Yes uvula midline Eyes Conjunctivae: conjunctivae normal Sclerae: sclerae normal Pupils: Equal, round and reactive pupils present EOM: EOMs intact bilaterally Direct Ophthalmoscopy: No no photophobia Neck Neck: Yes no lymphadenopathy, No tender and Yes no JVD Thyroid: Thyroid normal Carotids: no bruits Chest Chest palpation & inspection: no tenderness Resp Effort & Inspection: normal respiratory effort, no audible wheezes, not labored and no stridor Auscultation: no crackles, no rales, no rhonchi and no wheezes Cardio Jugular venous distension: no JVD Rate: regular rate, not bradycardic and not tachycardic Rhythm: regular rhythm Bruits: no carotid bruits Peripheral pulses: Peripheral pulses 2+ throughout GI Inspection: Yes normal to inspection, No abdominal wall ecchymosis and No visible herniation Palpation (GI): Soft to palpation, nontender, no guarding, not rigid and No hepatosplenomegaly present Auscultation: normoactive bowel sounds General: Yes no CVA tenderness Back/Spine/Pelvis Back: no CVA tenderness and No back tenderness Cervical Spine: cervical ROM normal Thoracic/Lumbar Spine: thoracic and lumbar spine normal to inspection, straight leg raise negative bilaterally, No thoraco-lumbar ROM limited and No lumbar spinal tenderness Skin Lesions: no lesions Rashes: no rashes Wounds: no wounds Neuro General: oriented to person, oriented to place, patient oriented x3, CN's II-XI intact bilaterally and No confusion Cranial nerves: Yes Equal, round and reactive pupils present and Yes Normal accommodation reflex present Cognition (Neuro): normal cognition Speech: No Abnormal speech present Gait exam (Neuro): Normal gait present Motor exam (neuro): 11/18 motor strength present throughout Extrem Right upper extremity: full ROM; no cyanosis Left upper extremity: full ROM; no cyanosis Right lower extremity: no edema Left lower extremity: no edema Psych Appearance: grossly normal Mental Status: mental status grossly normal Affect: normal affect Attitude: cooperative Thought process: Normal thought process present Office Procedures Flu Questionnaire Does the patient have a severe egg allergy?: No Does the patient have severe life threatening allergies?: No Does the patient have a fever or illness today?: No Has the patient ever had Guillain-[place] Syndrome?: No Has the patient ever had any past reaction to a flu shot?: No Immunizations Fluarix Triv 8822-1454 (PF) 45 mcg (15 mcg x 3)/0.5 mL IM syringe Performing Provider: Jose Antonio Bryant PA-C [facility] Administered by: CALLY Spencer on 05/21/24 15:14 Dose Route Admin Location Dispensed Lot Number Expiration Date [facility] [address] [place] 0.5 mL IM Left Deltoid 0.5 mL [id number] 01/13/25 [id number] [employer] VIS Given Date VIS Provided VIS Publication Date 05/21/24 Single Vaccine 21 Eligibility Eligibility Date Funding Source Not [facility] Eligible 05/21/24 Private Coding Level of Care Code Est Pt Prev Care 40-64y(68513) Diagnoses Annual physical exam Z00.00 Essential hypertension I10 Hypertension type: essential hypertension EMILY (obstructive sleep apnea) G47.33 Mixed hyperlipidemia E78.2 Hyperlipidemia type: mixed hyperlipidemia Class 2 obesity E66.812 Iron deficiency anemia due to chronic blood loss D50.0 Anemia type: iron deficiency Iron deficiency anemia type: chronic blood loss Additional Codes PHQ-9 - 64036 - PHQ-9 Billing: Yes ([id number]) DELMA-7 Assessment Billing - DELMA-7 Assessment Tool: DELMA-7 Assessment 35542 ([id number]) Assessment & Plan Assessment & Plan (1) Annual physical exam: Code(s): Z00.00 - Encounter for general adult medical examination without abnormal findings Category: Medical Plan: As per HPI (2) HTN (hypertension): Code(s): I10 - Essential (primary) hypertension Category: Medical Qualifiers: Hypertension type: essential hypertension Qualified Code(s): I10 - Essential (primary) hypertension Plan: Patient's blood pressure acceptable today in office. Will continue his current dose of antihypertensive medication with goal blood pressure to remain below 140/90 (3) EMILY (obstructive sleep apnea): Code(s): G47.33 - Obstructive sleep apnea (adult) (pediatric) Category: Medical Plan: Patient has elevated risk for obstructive sleep apnea. Does report having daytime somnolence. He has been told he has apneic episodes and snores at night. Will send for home sleep study to confirm suspicions of (4) Hyperlipidemia: Code(s): E78.5 - Hyperlipidemia, unspecified Category: Medical Qualifiers: Hyperlipidemia type: mixed hyperlipidemia Qualified Code(s): E78.2 - Mixed hyperlipidemia Plan: Patient's most recent lipid panel showing some improvement though still has elevated total cholesterol, triglycerides and LDL. He continues on fenofibrate and has been holding atorvastatin. 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 Did discuss perhaps making his own lunch a few days a week which would significantly help as a dietary modification (5) Class 2 obesity: Code(s): E66.812 - Obesity, class 2 Category: Medical Plan: Patient does understand his BMI is over 35 and will work on being more physically active and trying to adapt to better eating habits to reduce his weight. (6) Anemia: Code(s): D64.9 - Anemia, unspecified Category: Medical Qualifiers: Anemia type: iron deficiency Iron deficiency anemia type: chronic blood loss Qualified Code(s): D50.0 - Iron deficiency anemia secondary to blood loss (chronic) Plan: Patient does seem to have a chronic anemia. Does report feeling somewhat fatigued. Does have intermittent rectal bleeding secondary to his hemorrhoids. Will supply patient with an iron supplement. Orders: Orders Influenza [id number] Immunization 05/21/24 Z23 - Encounter for immunization RT home sleep study 05/21/24 G47.33 - Obstructive sleep apnea (adult) (pediatric) Medications: New ferrous sulfate 325 mg PO DAILY 90 tabs 1RF 90 days D50.0 - Iron deficiency anemia secondary to blood loss (chronic), D50.9 - Iron deficiency anemia, unspecified
== END 2024-05-21 15:55 | disposition home or self-care (01) ==
LOC: HO.HMCH 15:02
PROVIDERS: PCP Physician Assistant; Visit Provider Physician Assistant
DX: Z00.00 Encounter for general adult medical examination without abnormal findings (principal); I10 Essential (primary) hypertension; E66.812 Obesity, class 2; Z68.37 Body mass index [BMI] 37.0-37.9, adult; G47.33 Obstructive sleep apnea (adult) (pediatric); E78.2 Mixed hyperlipidemia; D50.0 Iron deficiency anemia secondary to blood loss (chronic)

== ENCOUNTER → 2024-05-21 15:01 | Outpatient (BNVA) | payer OTHER, SELFPAY | PROVIDERS: PCP Physician Assistant; Visit Provider Physician Assistant | DX: Z00.00 Encounter for general adult medical examination without abnormal findings (principal); Z23 Encounter for immunization; I10 Essential (primary) hypertension; G47.33 Obstructive sleep apnea (adult) (pediatric); E78.2 Mixed hyperlipidemia; E66.812 Obesity, class 2; Z68.37 Body mass index [BMI] 37.0-37.9, adult; D50.0 Iron deficiency anemia secondary to blood loss (chronic); Z71.3 Dietary counseling and surveillance | CPT/HCPCS: 90471; 90656; 96127; 99396 ==

== ENCOUNTER → 2024-07-01 15:56 | Outpatient (REF) | payer OTHER, SELFPAY | LOC: HO.SL 15:56 | PROVIDERS: PCP Physician Assistant; Visit Provider Physician Assistant | DX: G47.33 Obstructive sleep apnea (adult) (pediatric) (principal) | CPT/HCPCS: 95806 ==

== ENCOUNTER → 2024-07-01 16:04 | Outpatient (BNV) | payer OTHER, SELFPAY | PROVIDERS: PCP Physician Assistant; Visit Provider Internal Medicine | DX: R06.83 Snoring (principal); G47.10 Hypersomnia, unspecified | CPT/HCPCS: 95806 ==

== ENCOUNTER 2024-11-18 14:53 | Outpatient (AMB) | payer OTHER, SELFPAY ==
--- NOTE | 2024-11-18 15:00 | A.OFFPC_ITS ---
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 Accompanied by: Self / Same As Patient Allergies hydroxyzine Adverse Reaction (Unknown, Verified 11/18/24 15:16) sleepiness lisinopril Adverse Reaction (Unknown, Verified 11/18/24 15:16) dry cough, pruritus Medication List - Last Reconciled 11/18/24 by Jose Antonio Bryant PA-C atorvastatin 80 mg PO DAILY 90 days blood pressure test kit-large As directed cholecalciferol (vitamin D3) 25 mcg PO DAILY 90 days clotrimazole-betamethasone 1-0.05 % 1 appl topical BID 30 days docusate sodium 100 mg PO BEDTIME fenofibrate nanocrystallized 145 mg PO DAILY 90 days ferrous sulfate 325 mg PO DAILY 90 days losartan 50 mg PO DAILY 30 days Tobacco use date assessed: 11/18/24 Dental Screening Dental Screen Date: 11/18/24 Did you have a dental visit in the last 12 months?: No Did you have a dental problem in the last 6 months where you did not have access to dental care?: No Was dental information given to patient?: Patient has dentist HPI 6 month f/u HPI Details Patient 44-year-old male here today for a follow-up visit Has a past medical history significant for hypertension, hypertriglyceridemia, obese, history of?iron deficiency anemia(GI blood loss). Concern--> patient reports more episodes of hot flashes as of late to which he attributes to being somewhat stressed at times. Also does report having some tingling in his feet from time to time. Of note patient does have a history of anemia secondary to GI blood loss from bleeding hemorrhoids. He does report still bleeding from his hemorrhoids quite often. Will check CBC and iron studies. .. Hypertension: ? Today's blood pressure elevated today in office, he reports he has not been taking his losartan over last 2 days, requesting refill.? Patient continues on losartan with good effect.? otherwise denies any chest discomfort, headaches, vision issues. .. ? HYpERtRigLyCErIdEMiA:? Has been holding high dose statin therapy. Has restarted fenofibrate . His triglycerides have improved since starting fenofibrate. 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 AGAIN AND STRONGLY ADVISED TO REDUCE HIGH CHOLESTEROL FOODS IN HIS DIET. Not interested in seeing a dietitian at this time. [facility] Medical History Pedal edema Pruritus Contact dermatitis Cough Anemia High cholesterol Hypertension Iron deficiency anemia Surgical History History of hemorrhoidectomy Hx of colonoscopy H/O hand surgery History of tonsillectomy Family History Mother Medical history unknown Father Prostate cancer Paternal Uncle Prostate cancer Paternal Grandfather Prostate cancer Diabetes Hypertension Sister Hypothyroid Social History Housing: Apartment Are you a primary pharmacy care coordinator to a significant other at home: No Do you presently have visiting nurse or other home services: No Alcohol intake: current Alcohol intake frequency: a few times a month Comment: small amt red staining to abd pad Patient Tobacco Use Status: Never used Tobacco e-Cigarette/Vaping Use: Never Used Second Hand Smoke Exposure: No service: No Current occupational status: employed Current occupation: maintenance truck driver Cognitive needs: No Hearing needs: No Vision needs: No Questionnaire PHQ-9 Over the last 2 weeks, how often have you been bothered by any of the following problems? 1. Little interest or pleasure in doing things: not at all 2. Feeling down, depressed, or hopeless: not at all 3. Trouble falling or staying asleep, or sleeping too much: not at all 4. Feeling tired or having little energy: not at all 5. Poor appetite or overeating: not at all 6. Feeling bad about yourself - or that you are a failure or have let yourself or your family down: not at all 7. Trouble concentrating on things, such as reading the newspaper or watching television: not at all 8. Moving or speaking so slowly that other people could have noticed. Or the opposite - being so fidgety or restless that you have been moving around a lot more than usual: not at all 9. Thoughts that you would be better off or of hurting yourself in some way: not at all Total score: 0 Depression Screening Interpretation: Negative Depression Screening Done: Yes 65381 - PHQ-9 Billing: Yes Source: Developed by Drs. Mihir Ash, Patricia Tatum, Marcell Contreras and colleagues, with an educational belem from [employer]. Thrive Questionnaire Date Thrive assessed: 11/18/24 I am a: Patient What is your living situation today?: I have a steady place to live Within the past 12 months, did the food you bought not last and you didn't have the money to get more?: I choose not to answer this question Within the past 12 months, did you worry whether your food would run out before you got money to buy more?: I choose not to answer this question Do you have trouble paying for medicines?: I choose not to answer this question Do you have trouble getting transportation to medical appointments?: I choose not to answer this question Do you have trouble paying your heating and electricity bill?: I choose not to answer this question Do you have trouble taking care of your child, family member or friend?: I choose not to answer this question Do you have trouble with day-to-day activities such as bathing, preparing meals, shopping, managing finances, etc.?: I choose not to answer this question Are you currently unemployed and looking for a job?: I choose not to answer this question Are you interested in more education?: I choose not to answer this question Please select the resources that you would like help with: None Currently or been in a relationship where the following occur: I choose not to answer THRIVE Score: 0 AUDIT C Alcohol Use Questionnaire (AUDIT-C) 1. How often do you have a drink containing alcohol?: 2-4 times a month 2. How many drinks containing alcohol do you have on a typical day when you are drinking?: 3 or 4 3. How often do you have six or more drinks on one occasion?: Less than monthly Total Score: 4 DELMA-7 AMB Questionnaire EDLMA-7 Date DELMA - 7 assessed: 11/18/24 Feeling nervous, anxious, or on edge: 3 = Nearly every day Not being able to stop or control worryin = Nearly every day Worrying too much about different things: 3 = Nearly every day Trouble relaxin = Nearly every day Being so restless that it is hard to sit still: 0 = Not at all Becoming easily annoyed or irritable: 0 = Not at all Feeling afraid as if something awful might happen: 3 = Nearly every day Total DELMA-7 score (0-4 normal; 5-9 mild; 10-14 moderate; 15-21 severe): 15 Source: Developed by Drs. Mihir Ash, Patricia Tatum, Marcell Contreras and colleagues, with an educational belem from [employer]. DELMA-7 Assessment Billing DELMA-7 Assessment Tool: DELMA-7 Assessment 39763 Review of Systems Const Denies headache(s) Eyes Denies loss of vision ENT Denies vertigo, Denies dizziness, Denies headache(s) and Denies sore throat Card Denies chest pain, Denies leg edema and Denies lightheadedness Resp Denies cough, Denies hemoptysis and Denies wheezing GI Denies abdominal pain, Denies melena, Denies constipation, Denies diarrhea and Denies vomiting Denies dysuria, Denies urinary frequency and Denies urinary urgency Musc Denies arthralgias, Denies joint swelling, Denies numbness and Denies tingling Neuro Denies Abnormal speech present, Denies behavioral changes, Denies vertigo, Denies dizziness, Denies headache(s), Denies loss of vision, Denies memory loss, Denies numbness and Denies tingling Psych Denies anxiety, Denies behavioral changes, Denies depression, Denies memory loss and Denies panic attacks Reg/Lymph Denies easy bleeding and Denies easy bruising Aller/Immun Denies wheezing Physical exam (Primary Care) Vital Signs: Last Vital Signs Temp 97.5 F 11/18/24 15:01 Pulse 80 11/18/24 15:01 BP 148/100 H 11/18/24 15:01 Pulse Ox 100 11/18/24 15:01 Oxygen Delivery Method Room Air 11/18/24 15:01 BMI result Body Mass Index 37.3 BMI Assessment/Plan discussion: High BMI High, discussed plan: lifestyle, weight reduction, dietary and physical activity Tobacco/Smoking Status: Tobacco use Status Tobacco use date assessed 11/18/24 11/18/24 15:12 Patient Tobacco Use Status Never used Tobacco 11/18/24 15:01 e-Cigarette/Vaping Use Never Used 11/18/24 15:01 PHQ-9: PHQ-9 Score PHQ-9: Total score 0 11/18/24 15:01 Depression Screening Interpretation: Negative Thrive Assessment: Date of Thrive Assessment Date Thrive assessed 11/18/24 11/18/24 15:01 Currently or been in a relationship where the following occur: I choose not to answer Const General: healthy appearing, no acute distress, alert and awake Nutritional Appearance: well nourished Orientation/consciousness: oriented to person, oriented to place and oriented to time HENMT Ears: TM's normal bilaterally General nose exam: Normal nasal mucous membranes and turbinates present Eyes Conjunctivae: conjunctivae normal Sclerae: sclerae normal Pupils: Equal, round and reactive pupils present Neck Neck: Yes no lymphadenopathy and Yes no JVD Thyroid: Thyroid normal Carotids: no bruits Resp Effort & Inspection: normal respiratory effort and not tachypneic Auscultation: no crackles, no rales, no rhonchi and no wheezes Cardio Rate: regular rate Rhythm: regular rhythm Heart sounds: no murmurs and normal S1 and S2 GI Palpation (GI): Soft to palpation, nontender, no hepatomegaly and no splenomegaly Auscultation: normal bowel sounds Skin General skin exam: no rashes or lesions noted and dry skin Neuro General: oriented to person, oriented to place and oriented to time Cranial nerves: Yes Equal, round and reactive pupils present Speech: No Abnormal speech present Gait exam (Neuro): Normal gait present Motor exam (neuro): no tremor noted Extrem Right upper extremity: full ROM Left upper extremity: full ROM Right lower extremity: full ROM; no edema Left lower extremity: full ROM; no edema Psych Mental Status: mental status grossly normal Speech and movement: Normal speech and movement present Affect: normal affect Attitude: cooperative Thought process: Normal thought process present Coding Level of Care Code Est Pt Level 4 (03489) Diagnoses Essential hypertension I10 Hypertension type: essential hypertension Diaphoresis R61 Mixed hyperlipidemia E78.2 Hyperlipidemia type: mixed hyperlipidemia Class 2 obesity E66.812 Iron deficiency anemia due to chronic blood loss D50.0 Anemia type: iron deficiency Iron deficiency anemia type: chronic blood loss Additional Codes DELMA-7 Assessment Billing - DELMA-7 Assessment Tool: DELMA-7 Assessment 07171 ([id number]) PHQ-9 - 85466 - PHQ-9 Billing: Yes ([id number]) Assessment & Plan Assessment & Plan (1) HTN (hypertension): Code(s): I10 - Essential (primary) hypertension Category: Medical Qualifiers: Hypertension type: essential hypertension Qualified Code(s): I10 - Essential (primary) hypertension Plan: Patient's blood pressure elevated today in office. Has not been taking his losartan over the last few days. He promises to restart his regular dose of losartan for blood pressure control. Will continue his current dose of antihypertensive medication with goal blood pressure to remain below 140/90 (2) Diaphoresis: Code(s): R61 - Generalized hyperhidrosis Category: Medical Plan: Patient does report hot flashes and sweating on random occasions. Unclear if this is related to cardiac issue thus will send for cardiac stress test to rule out ischemic cardiac etiology on physical exertion. (3) Hyperlipidemia: Code(s): E78.5 - Hyperlipidemia, unspecified Category: Medical Qualifiers: Hyperlipidemia type: mixed hyperlipidemia Qualified Code(s): E78.2 - Mixed hyperlipidemia Plan: Patient's most recent lipid panel showing some improvement though still has elevated total cholesterol, triglycerides and LDL. He continues on fenofibrate and has been holding atorvastatin. 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 Did discuss perhaps making his own lunch a few days a week which would significantly help as a dietary modification (4) Class 2 obesity: Code(s): E66.812 - Obesity, class 2 Category: Medical Plan: Patient does understand his BMI is over 35 and will work on being more physically active and trying to adapt to better eating habits to reduce his weight. (5) Anemia: Code(s): D64.9 - Anemia, unspecified Category: Medical Qualifiers: Anemia type: iron deficiency Iron deficiency anemia type: chronic blood loss Qualified Code(s): D50.0 - Iron deficiency anemia secondary to blood loss (chronic) Plan: Patient does seem to have a chronic anemia. Does report feeling somewhat fatigued. Sleep study was normal He does report having mild tingling in his feet bilaterally. Will recheck CBC and iron studies. Orders: Orders Complete Blood Count Auto Diff Today D50.0 - Iron deficiency anemia secondary to blood loss (chronic) Comprehensive [place]. Panel Fast Today E78.1 - Pure hyperglyceridemia CA stress test Today R61 - Generalized hyperhidrosis Testosterone, Free/Total Today R61 - Generalized hyperhidrosis TSH reflex Free T4 Today R61 - Generalized hyperhidrosis Lipid Panel Today E78.1 - Pure hyperglyceridemia IRON PROFILE Today D50.0 - Iron deficiency anemia secondary to blood loss (chronic), D50.9 - Iron deficiency anemia, unspecified Prostate Specific Antigen Scr Today E78.1 - Pure hyperglyceridemia, Z12.5 - Encounter for screening for malignant neoplasm of prostate Estrogen Today R61 - Generalized hyperhidrosis Medications: Refilled cholecalciferol (vitamin D3) 25 mcg PO DAILY 90 days 90 tabs 2RF I10 - Essential (primary) hypertension fenofibrate nanocrystallized 145 mg PO DAILY 90 days 90 tabs 2RF E78.1 - Pure hyperglyceridemia losartan 50 mg PO DAILY 30 days 30 tabs 3RF I10 - Essential (primary) hypertension
[2024-11-18 15:01] VITALS: BP 148/100; PULSE 80; TEMP 36.4; O2SAT 100; BMI 37.3
== END 2024-11-18 15:32 | disposition home or self-care (01) ==
LOC: HO.HMCH 14:54
PROVIDERS: PCP Physician Assistant; Visit Provider Physician Assistant
DX: I10 Essential (primary) hypertension (principal); E66.812 Obesity, class 2; Z68.37 Body mass index [BMI] 37.0-37.9, adult; R61 Generalized hyperhidrosis; E78.2 Mixed hyperlipidemia; D50.0 Iron deficiency anemia secondary to blood loss (chronic)

== ENCOUNTER → 2024-11-18 14:53 | Outpatient (BNVA) | payer OTHER, SELFPAY | PROVIDERS: PCP Physician Assistant; Visit Provider Physician Assistant | DX: I10 Essential (primary) hypertension (principal); R61 Generalized hyperhidrosis; E78.2 Mixed hyperlipidemia; E66.812 Obesity, class 2; Z68.37 Body mass index [BMI] 37.0-37.9, adult; D50.0 Iron deficiency anemia secondary to blood loss (chronic); Z79.899 Other long term (current) drug therapy | CPT/HCPCS: 96127; 99212 ==

== ENCOUNTER 2024-11-27 07:22 | Outpatient (REF) | payer OTHER, SELFPAY ==
[2024-11-27 07:32] LABS: MANUAL DIFF FLAG NO
[2024-11-27 07:45] LABS: Basophils Absolute Auto 0.1 X10*3/uL (0.0-0.2); Eosinophils Absolute Auto 0.1 X10*3/uL (0.0-0.4); Hematocrit 45.8 % (42.0-52.0); Hemoglobin 15.2 g/dl (14.0-18.0); Imm Gran Abs Auto 0.01 X10*3/uL (0.00-0.03); Imm Gran Pct Auto 0.1 % (0.0-0.4); Lymphocytes Absolute Auto 2.9 X10*3/uL (1.2-4.9); Lymphocytes Percent Auto 36.8 % (20-40); Mean Corpuscular HGB Conc 33.2 g/dl (31.0-36.0); Mean Corpuscular Hemoglobin 26.1 pg (27.0-33.0); Mean Corpuscular Volume 78.6 fL (80.0-98.0); Monocytes Absolute Auto 0.8 X10*3/uL (0.1-1.2); Monocytes Percent Auto 9.8 % (2-11); Neutrophils Absolute Auto 4.1 x10*3/uL (2.0-8.3); Neutrophils Percent Auto 51.3 % (45-73); Platelet Count 318 X10*3/uL (160-400); Red Blood Count 5.83 X10*6/uL (4.60-5.80); Red Cell Distribution Width 13.2 % (11.0-16.0); White Blood Count 7.9 X10*3/uL (4.8-10.8)
[2024-11-27 08:08] LABS: Alanine Aminotransferase 41 U/L (0-40); Albumin Level 4.7 g/dL (3.5-5.0); Anion Gap 14 (12-20); Aspartate Amino Transferase 34 U/L (5-37); Bilirubin Total 0.5 mg/dL (0.0-1.0); Blood Urea Nitrogen 17 mg/dL (9-16); Calcium 9.7 mg/dL (8.4-10.2); Carbon Dioxide 27 mmol/L (22-29); Chloride 104 mmol/L (96-108); Cholesterol 281 mg/dL (<200); Estimated Glomerular Filt Rate > 60; Glucose Fasting 110 mg/dL (60-99); HDL Cholesterol 40 mg/dL (>40); Iron 75 mcg/dL (45-160); LDL Cholesterol Calculated 162 mg/dL (<100); Percent Iron Saturation 23 % (15-50); Potassium 3.7 mmol/L (3.3-5.1); Sodium 141 mmol/L (135-145); Total Iron Binding Capacity 332 mcg/dL (228-428); Total Protein 7.5 g/dL (6.5-8.0); Triglycerides 399 mg/dL (<150); Unsaturated Iron Binding 257 ug/dL
[2024-11-27 08:28] LABS: Alkaline Phosphatase 76 U/L (39-117); Prostate Specific Antigen Scr 0.29 ng/mL (<0.05-4.0)
[2024-11-27 08:38] LABS: TSH reflex Free T4 2.02 uIU/mL (0.32-4.0)
[2024-12-04 10:33] LABS: Testosterone, Total 241 ng/dL (250-1100)
[2024-12-05 22:43] LABS: Estrogen 75 pg/mL (< OR = 404)
== END 2024-11-27 07:23 | disposition home or self-care (01) ==
LOC: HO.LAB 07:22
PROVIDERS: PCP Physician Assistant; Visit Provider Physician Assistant
DX: D50.0 Iron deficiency anemia secondary to blood loss (chronic) (principal); R61 Generalized hyperhidrosis; E78.1 Pure hyperglyceridemia; Z12.5 Encounter for screening for malignant neoplasm of prostate; D50.9 Iron deficiency anemia, unspecified
CPT/HCPCS: 36415; 80053; 80061; 82672; 83540; 84153; 84402; 84403; 84443; 85025

== ENCOUNTER 2025-02-24 08:48 | Outpatient (AMB) | payer OTHER, SELFPAY ==
--- NOTE | 2025-02-24 08:50 | MHC.OFFVIS ---
Intake Visit Reasons: low testosterone Intake Note: New patient presents today for initial visit for low testosterone 11/27 Testosterone: 241 PSA: 0.29 Urology Medication:None Blood Thinner:None Antibiotic Allergies:None Allergies hydroxyzine Adverse Reaction (Unknown, Verified 02/24/25 09:28) sleepiness lisinopril Adverse Reaction (Unknown, Verified 02/24/25 09:28) dry cough, pruritus Medication List - Last Reconciled 02/24/25 by ROSIE Garcia-JULIUS atorvastatin 80 mg PO DAILY 90 days Held on 08/16/23. Instructions: Doctor's Order blood pressure test kit-large As directed cholecalciferol (vitamin D3) 25 mcg PO DAILY 90 days fenofibrate nanocrystallized 145 mg PO DAILY 90 days losartan 50 mg PO DAILY 30 days HPI Comments Details: Howard is a 44-year-old male patient of Dr. Bryant. He has a past medical history of pruritus, contact dermatitis, anemia, hypercholesteremia, hypertension, iron deficiency anemia, and obesity. He presents to the office today as a new patient for hypogonadism. In discussion with the patient today he reports having followed up with his PCP in discussing ongoing issues with bilateral lower leg extremity paresthesia and hot flashes he had been experiencing at which time his testosterone labs were ordered and performed and recommendations were made for urology referral for further assessment evaluation. These results were reviewed and communicated with the patient today.: Testosterone: 12/08 241 Free testosterone: 12/08 TNP Estrogen: 12/08 75 PSA: 12/08 0.3 He denies any previous history of testicular injury/trauma, anabolic steroid use, or illness that could have contributed to hypogonadism. When asked he does report a longstanding history of urinary hesitancy and weak urinary stream. He reports urinary symptoms started a few years ago however he does feel he is self managing. He denies urinary urgency, urinary frequency, incontinence, nocturia, hematuria, dysuria, foul smelling urine, flank pain, fever, and or chills. We did discussed potential causes of hypogonadism as well as further treatment options and risks and benefits of these treatment options. We discussed lifestyle modifications to assist with lower urinary tract symptoms as well as hypogonadism. All questions were answered. He otherwise offers no other issues or concerns at this time. Discussion Notes I discussed with the patient that his testosterone levels are borderline low and explained the importance of testosterone for various bodily functions. We talked about the need for further blood work to determine the cause of the low testosterone. I also explained the potential need for an ultrasound of the kidneys and bladder to address the weak urinary stream and discussed lifestyle modifications such as improving sleep and engaging in regular physical activity. Plan Further diagnostic testing, including blood work and an ultrasound, will be conducted to assess the underlying causes of the patient's symptoms. Lifestyle changes, such as improving sleep quality, healthy eating habits, and increasing physical activity, are advised to support natural testosterone production. [facility] Medical History (Updated 02/24/25 @ 09:18 by [facility] History of urinary hesitancy Pedal edema Pruritus Contact dermatitis Cough Anemia High cholesterol Hypertension Iron deficiency anemia Surgical History History of hemorrhoidectomy Hx of colonoscopy H/O hand surgery History of tonsillectomy Family History Mother Medical history unknown Father Prostate cancer Paternal Uncle Prostate cancer Paternal Grandfather Prostate cancer Diabetes Hypertension Sister Hypothyroid Social History Housing: Apartment Are you a primary intensive care specialist to a significant other at home: No Do you presently have visiting nurse or other home services: No Alcohol intake: current Alcohol intake frequency: a few times a month Comment: small amt red staining to abd pad Patient Tobacco Use Status: Never used Tobacco e-Cigarette/Vaping Use: Never Used Second Hand Smoke Exposure: No service: No Current occupational status: employed Current occupation: regional flatbed truck driver Cognitive needs: No Hearing needs: No Vision needs: No Review of Systems Const All systems reviewed & are unremarkable except as noted in HPI and below Physical Exam Const General: cooperative, healthy appearing, comfortable, no acute distress, well developed, alert and awake Nutritional Appearance: overweight Orientation/consciousness: patient oriented x3 Limitations: no limitations HEENT Head: Yes normal to inspection, Yes normocephalic and Yes atraumatic Ears: hearing grossly normal bilaterally Eyes General: appearance normal, both eyes and all related structures Neck Neck: Yes normal visual inspection and Yes trachea midline Chest Chest palpation & inspection: normal inspection of the chest Resp Effort & Inspection: normal respiratory effort and able to speak in complete sentences Cardio Rate: regular rate GI Inspection: Yes normal to inspection General: Yes no CVA tenderness Back/Spine/Pelvis Back: no CVA tenderness Skin General skin exam: no rashes or lesions noted Neuro General: patient oriented x3 Extrem General: Yes normal to inspection Psych Appearance: grossly normal and well kempt Mental Status: mental status grossly normal Speech and movement: Normal speech and movement present and Clear speech present Affect: normal affect Attitude: cooperative Thought process: Normal thought process present Thought content: Normal thought content present Insight: Fair insight present (Psych) Judgement: Fair judgement present (Psych) Results AMB Urinalysis, Automated UA Leukoctes 0 Gregory/uL Last Edit by Deloris Stoll on 02/24/25 14:42 UA Nitrite Negative Last Edit by Deloris Stoll on 02/24/25 14:42 UA Urobilinogen 3.5 mg/dL Last Edit by Deloris Stoll on 02/24/25 14:42 UA Protein 1 mg/dL Last Edit by Deloris Stoll on 02/24/25 14:42 UA pH 6.0 Last Edit by Deloris Stoll on 02/24/25 14:42 UA Blood 0 Regino/uL Last Edit by Deloris Stoll on 02/24/25 14:42 UA Specific [place] 1.020 Last Edit by Deloris Stoll on 02/24/25 14:42 UA Ketone Negative Last Edit by Deloris Stoll on 02/24/25 14:42 UA Bilirubin 0 mg/dL Last Edit by Deloris Stoll on 02/24/25 14:42 UA Glucose 0 mg/dL Last Edit by Deloris Stoll on 02/24/25 14:42 Results Reviewed Results Reviewed: Laboratory Last Values Urine pH (Auto) 6.0 02/24/25 13:22 Specific [place] (Auto) 1.020 02/24/25 13:22 Urine Protein (Auto) 1 mg/dL 02/24/25 13:22 Glucose (UA)(Auto) 0 mg/dL 02/24/25 13:22 Urine Ketones (Auto) Negative 02/24/25 13:22 Urine Blood (Auto) 0 Regino/uL 02/24/25 13:22 Urine Nitrite (Auto) Negative 02/24/25 13:22 Urine Bilirubin (Auto) 0 mg/dL 02/24/25 13:22 Urine Urobilinogen (Auto) 3.5 mg/dL 02/24/25 13:22 Leukocyte Esterase (Auto) 0 Gregory/uL 02/24/25 13:22 Assessment & Plan Assessment & Plan (1) Weak urinary stream: Code(s): R39.12 - Poor urinary stream Category: Medical (2) History of urinary hesitancy: Code(s): Z87.898 - Personal history of other specified conditions Category: Medical (3) Hypogonadism in male: Code(s): E29.1 - Testicular hypofunction Category: Medical Plan In office urinalysis results reviewed with the patient today; as noted above. Recent testosterone, estradiol, and PSA results reviewed with the patient today; as noted above. We discussed lifestyle modifications to assist with hypogonadism as well as weak urinary stream/urinary hesitancy All questions were answered. We discussed importance of weight loss to assist with urological issues as well as overall health and well-being. Will obtain estradiol, FSH, LH, SHBG, and prolactin for further assessment evaluation. Will obtain retroperitoneal ultrasound for further assessment evaluation. We discussed potential causes of hypogonadism as well as lower urinary tract symptoms. Follow-up in 1-3 months with labs, imaging, and PVR to be completed prior; or sooner with any issues, concerns, and or questions. Orders: Orders Estrad Free (Tot Ultra + Free) 02/24/25 E29.1 - Testicular hypofunction Follicle Stimulating Hormone 02/24/25 E29.1 - Testicular hypofunction Lutenizing Hormone 02/24/25 E29.1 - Testicular hypofunction Sex Hormone Binding Globulin 02/24/25 E29.1 - Testicular hypofunction Testosterone, Free/Total 02/24/25 E29.1 - Testicular hypofunction US retroperitoneal comp 02/24/25 R39.12 - Poor urinary stream, Z87.898 - Personal history of other specified conditions Hemoglobin A1c 02/24/25 E11.9 - Type 2 diabetes mellitus without complications, E29.1 - Testicular hypofunction Prolactin 02/24/25 E29.1 - Testicular hypofunction AMB Urinalysis Automated 02/24/25 R39.12 - Poor urinary stream, Z87.898 - Personal history of other specified conditions Patient Instructions: The patient had an opportunity to ask questions regarding the treatment plan. All questions were answered. Physical exam, labs, and imaging were discussed and reviewed in detail. As well as risks, benefits, and discussion of treatment choices. No major barriers to understanding were identified. The patient expressed understanding and agreement with the above treatment plan. The patient was made aware they should contact our office by phone for worsening of their current condition, the appearance of new symptoms, or with any questions or concerns. Compliance is encouraged with any medications and follow up testing that is ordered. It is a privilege to be allowed the opportunity to participate in? your urological care.? Again, if you have any questions or concerns If you have any questions or concerns please do not hesitate to contact me. The office is [phone]. This note is constructed using voice recognition software. While every effort has been made to ensure accuracy product marketer errors may have been included. Yours sincerely, KAREN Garcia Coding Level of Care Code New Pt Level 3 (99297) Diagnoses Weak urinary stream R39.12 History of urinary hesitancy Z87.898 Hypogonadism in male E29.1
--- OUTSIDE RECORDS SUMMARY | 2025-02-24 09:12 | XMS_ITS | Patient Health Record ---
Author Organization [facility] Address [address] [place] [address] Care Team Providers Care Cash Application Representative Name Role Phone Jewels Valentine Primary Care Provider Unavailab Mihir Zavaleta Unavailable [phone] Reason For Referral No Information Medications Medication SIG (Take, Route, Frequency, Duration) Notes Start Date End Date Status Simvastatin 40 MG 1 tablet in the even ing Orally Once a day Active hydroCHLOROthiazide 25 MG 1 tablet Orally Once a day Active Fenofibrate 54 MG 1 tablet Orally Once a day Active Losartan Potassium 50 MG 1 tablet Orally Once a day Active amLODIPine Besylate 5 MG 1 tablet Orally Once a day Active Problems Problem Type SNOMED Code ICD Code Onset Dates Problem Status W/U Status Risk Notes Problem 304526236 Blood in stool (K92.1) Active confirmed Problem 34932262 Constipation, unspecified constipation type (K59.00) Active confirmed Plan Of Treatment Pending Test Test Name Order Date GI BIOPSY 01/22/2016 Future Test Test Name Order Date COLONOSCOPY 11/13/2015 Insurance Providers Payer Name Payer Address Payer Phone Subscriber Number Group Number Insured Name Patient Relationship to Insured Coverage Start Date Coverage End Date [facility] [address] [place], [place] [id number] CHERISE SARAH Self - patient is the insured Medical (General) History Medical History History ICD Code Hypertension Denies [place],DM,CVA,Lung disease,renal dise ase Hyperlipidemia Surgical History Surgery Date(Month/Year) hand surgery 2001
== END 2025-02-24 09:30 | disposition home or self-care (01) ==
LOC: HO.HUSH 08:49
PROVIDERS: PCP Physician Assistant; Visit Provider Nurse Practitioner Family
DX: R39.12 Poor urinary stream (principal); Z87.898 Personal history of other specified conditions; E29.1 Testicular hypofunction
CPT/HCPCS: 99203

== ENCOUNTER → 2025-02-24 08:48 | Outpatient (BNVA) | payer OTHER, SELFPAY | PROVIDERS: PCP Physician Assistant; Visit Provider Nurse Practitioner Family | DX: E29.1 Testicular hypofunction (principal); R39.12 Poor urinary stream; Z87.898 Personal history of other specified conditions | CPT/HCPCS: 81003; 99202 ==

== ENCOUNTER 2025-05-05 09:44 | Outpatient (REF) | payer OTHER, SELFPAY ==
--- NOTE | ~2025-05-05 | US_ITS ---
CLINICAL HISTORY: R39.12 - Poor urinary stream US RENAL Comparison: None provided Findings: Right kidney normal size and echotexture, 11.5 cm length. Left kidney normal size and echotexture, 13.0 cm length. No hydronephrosis of either kidney. Probable hypertrophied column of Vijay in the left kidney, an anatomical variant. Urinary bladder is unremarkable. Prevoid volume 194 mL. Postvoid volume 13 mL. Irregular heterogeneous prostate measures 4.0 x 4.3 x 3.8 cm equal to a volume of 34 mL. Typically, upper limit of normal is 30 mL. Mass-effect on the urinary bladder base is present. Bilateral ureteral jets are visualized. IMPRESSION: 1. No hydronephrosis. 2. No ultrasonographic evidence of nephrolithiasis. No suspicious renal cortical lesion identified. 3. Mild prostatomegaly with probable mass effect on the urinary bladder base. 4. No significant postvoid residual. This document has been electronically signed by: Graciela Holman DO on 05/06/2025 14:55:53
[2025-05-06 07:35] LABS: Follicle Stimulating Hormone 5.6 mIU/mL (1.4-12.8)
[2025-05-25 13:03] LABS: Testosterone, Free 62.0 pg/mL (35.0-155.0)
== END 2025-05-05 09:45 | disposition home or self-care (01) ==
LOC: HO.US 09:44
PROVIDERS: PCP Physician Assistant; Visit Provider Nurse Practitioner Family
DX: R39.12 Poor urinary stream (principal); E29.1 Testicular hypofunction; E11.9 Type 2 diabetes mellitus without complications; Z87.898 Personal history of other specified conditions
CPT/HCPCS: 36415; 76770; 82670; 82681; 83001; 83002; 83036; 84146; 84270; 84402; 84403

== ENCOUNTER → 2025-05-05 09:46 | Outpatient (BNV) | payer OTHER, SELFPAY | PROVIDERS: PCP Physician Assistant; Visit Provider Radiology Diagnostic Radiology | DX: N40.0 Benign prostatic hyperplasia without lower urinary tract symptoms (principal) | CPT/HCPCS: 76770 ==

== ENCOUNTER 2025-05-12 09:34 | Outpatient (AMB) | payer OTHER, SELFPAY ==
--- NOTE | 2025-05-12 09:41 | A.OFFVIS_ITS ---
Intake Visit Reasons: 2m/US/labs Intake Note: Patient is present for 2M/US/LABS Urology Medication:NONE Antibiotic Allergy:NONE Blood Thinner:NONE Motor Expert Required: No Allergies hydroxyzine Adverse Reaction (Unknown, Verified 05/12/25 10:27) sleepiness lisinopril Adverse Reaction (Unknown, Verified 05/12/25 10:27) dry cough, pruritus Medication List - Last Reconciled 05/12/25 by KAREN Garcia atorvastatin 80 mg PO DAILY 90 days Held on 08/16/23. Instructions: Doctor's Order blood pressure test kit-large As directed cholecalciferol (vitamin D3) 25 mcg PO DAILY 90 days fenofibrate nanocrystallized 145 mg PO DAILY 90 days losartan 50 mg PO DAILY 30 days HPI Comments Details: Howard is a 44-year-old male patient of Dr. Bryant. He has a past medical history of pruritus, contact dermatitis, anemia, hypercholesteremia, hypertension, iron deficiency anemia, and obesity. He presents to the office today for a follow up of his hypogonadism and lower urinary tract symptoms at which time labs and a retroperitoneal ultrasound were ordered for further assessment evaluation. These results were reviewed and communicated with the patient today. Retroperitoneal ultrasound 05/10 bilateral kidneys are normal in size and echotexture. No hydronephrosis noted bilaterally. Probable hypertrophied column of Vijay in the left kidney, an anatomical variant. Urinary bladder is unremarkable. Postvoid volume 13 mL. Irregular heterogeneous prostate measures 4.0 x 4.3 x 3.8 cm equal to a volume of 34 mL. Mass-effect on the urinary bladder base is present. Bilateral ureteral jets are visualized. La bs are as follows: Testosterone: 12/08 241, 05/10 pending Free testosterone: 12/08 TNP, 05/10 pending Estrogen: 12/08 75, 05/10 pending PSA: 12/08 0.3 FSH: 05/10 5.6 Prolactin: 05/10 6.7 . LH: 05/10 2.0 SHB/25 14 We did discuss further treatment options of borderline hypogonadism to include stimulation testing verses trial of low-dose Cialis verses testosterone replacement versus surveillance monitoring. Risks and benefits of these interventions were discussed at length. We discussed testosterone replacement verses testosterone yazidism. We also discussed mass effect of prostate on the urinary bladder base. We discussed further treatment options and risks and benefits of these treatment options. In office urinalysis results reviewed with the patient today. He denies any previous history of testicular injury/trauma, anabolic steroid use, or illness that could have contributed to hypogonadism. When asked he does report a longstanding history of urinary hesitancy and weak urinary stream. He reports urinary symptoms started a few years ago however he does feel he is self managing. He denies urinary urgency, urinary frequency, incontinence, nocturia, hematuria, dysuria, foul smelling urine, flank pain, fever, and or chills. We did discussed potential causes of hypogonadism as well as further treatment options and risks and benefits of these treatment options. We discussed lifestyle modifications to assist with lower urinary tract symptoms as well as hypogonadism. All questions were answered. He otherwise offers no other issues or concerns at this time. [facility] Medical History (Updated 02/24/25 @ 09:18 by Olga Lorenzo [facility]) History of urinary hesitancy Pedal edema Pruritus Contact dermatitis Cough Anemia High cholesterol Hypertension Iron deficiency anemia Surgical History History of hemorrhoidectomy Hx of colonoscopy H/O hand surgery History of tonsillectomy Family History Mother Medical history unknown Father Prostate cancer Paternal Uncle Prostate cancer Paternal Grandfather Prostate cancer Diabetes Hypertension Sister Hypothyroid Social History Housing: Apartment Are you a primary healthcare architect to a significant other at home: No Do you presently have visiting nurse or other home services: No Alcohol intake: current Alcohol intake frequency: a few times a month Comment: small amt red staining to abd pad Patient Tobacco Use Status: Never used Tobacco e-Cigarette/Vaping Use: Never Used Second Hand Smoke Exposure: No service: No Current occupational status: employed Current occupation: class a regional truck driver Cognitive needs: No Hearing needs: No Vision needs: No Review of Systems Const All systems reviewed & are unremarkable except as noted in HPI and below Physical Exam Const General: cooperative, healthy appearing, comfortable, no acute distress, well developed, alert and awake Nutritional Appearance: overweight Orientation/consciousness: patient oriented x3 Limitations: no limitations HEENT Head: Yes normal to inspection, Yes normocephalic and Yes atraumatic Ears: hearing grossly normal bilaterally Eyes General: appearance normal, both eyes and all related structures Neck Neck: Yes normal visual inspection and Yes trachea midline Chest Chest palpation & inspection: normal inspection of the chest Resp Effort & Inspection: normal respiratory effort and able to speak in complete sentences Cardio Rate: regular rate GI Inspection: Yes normal to inspection General: Yes no CVA tenderness Back/Spine/Pelvis Back: no CVA tenderness Skin General skin exam: no rashes or lesions noted Neuro General: patient oriented x3 Extrem General: Yes normal to inspection Psych Appearance: grossly normal and well kempt Mental Status: mental status grossly normal Speech and movement: Normal speech and movement present and Clear speech present Affect: normal affect Attitude: cooperative Thought process: Normal thought process present Thought content: Normal thought content present Insight: Fair insight present (Psych) Judgement: Fair judgement present (Psych) Results AMB Urinalysis, Automated UA Leukoctes 0 Gregory/uL Last Edit by CALLY Mcduffie on 05/12/25 09:53 UA Nitrite Negative Last Edit by CALLY Mcduffie on 05/12/25 09:53 UA Urobilinogen 0.2 mg/dL Last Edit by CALLY Mcduffie on 05/12/25 09:5 3 UA Protein 15 mg/dL Last Edit by CALLY Mcduffie on 05/12/25 09:53 UA pH 6.0 Last Edit by CALLY Mcduffie on 05/12/25 09:53 UA Blood 0 Regino/uL Last Edit by CALLY Mcduffie on 05/12/25 09:53 UA Specific [place] 1.020 Last Edit by CALLY Mcduffie on 05/12/25 09: 53 UA Ketone Negative Last Edit by CALLY Mcduffie on 05/12/25 09:53 UA Bilirubin 0 mg/dL Last Edit by CALLY Mcduffie on 05/12/25 09:53 UA Glucose 0 mg/dL Last Edit by CALLY Mcduffie on 05/12/25 09:53 Results Reviewed Results Reviewed: Laboratory Last Values Urine pH (Auto) 6.0 05/12/25 09:53 Specific [place] (Auto) 1.020 05/12/25 09:53 Urine Protein (Auto) 15 mg/dL 05/12/25 09:53 Glucose (UA)(Auto) 0 mg/dL 05/12/25 09:53 Urine Ketones (Auto) Negative 05/12/25 09:53 Urine Blood (Auto) 0 Regino/uL 05/12/25 09:53 Urine Nitrite (Auto) Negative 05/12/25 09:53 Urine Bilirubin (Auto) 0 mg/dL 05/12/25 09:53 Urine Urobilinogen (Auto) 0.2 mg/dL 05/12/25 09:53 Leukocyte Esterase (Auto) 0 Gregory/uL 05/12/25 09:53 Date of Service: 05/05/25 Procedure(s): US retroperitoneal comp Findings: Right kidney normal size and echotexture, 11.5 cm length. Left kidney normal size and echotexture, 13.0 cm length. No hydronephrosis of either kidney. Probable hypertrophied column of Vijay in the left kidney, an anatomical variant. Urinary bladder is unremarkable. Prevoid volume 194 mL. Postvoid volume 13 mL. Irregular heterogeneous prostate measures 4.0 x 4.3 x 3.8 cm equal to a volume of 34 mL. Typically, upper limit of normal is 30 mL. Mass-effect on the urinary bladder base is present. Bilateral ureteral jets are visualized. IMPRESSION: 1. No hydronephrosis. 2. No ultrasonographic evidence of nephrolithiasis. No suspicious renal cortical lesion identified. 3. Mild prostatomegaly with probable mass effect on the urinary bladder base. 4. No significant postvoid residual. Assessment & Plan Assessment & Plan (1) Weak urinary stream: Code(s): R39.12 - Poor urinary stream Category: Medical (2) History of urinary hesitancy: Code(s): Z87.898 - Personal history of other specified conditions Category: Medical (3) Hypogonadism in male: Code(s): E29.1 - Testicular hypofunction Category: Medical Plan In office urinalysis results reviewed with the patient today; as noted above. Recent labs reviewed with the patient today; as noted above. Recent retroperitoneal ultrasound results reviewed with the patient today; as noted above. We discussed further treatment options of urinary hesitancy as well as risks and benefits of these treatment options. We discussed at length potential causes of borderline hypogonadism as well as further treatment options and risks and benefits of these treatment options. All questions were answered. Start Cialis 5 mg daily as discussed and prescribed. Will continue with surveillance monitoring. We also reviewed lifestyle modifications to assist with these urological conditions. Will obtain testosterone and PSA in 4-6 months. Follow-up in 4-6 months with labs to be completed prior; or sooner with any issues, concerns, and or questions. Orders: Orders Prostate Specific Antigen 4 Months E29.1 - Testicular hypofunction, R39.12 - Poor urinary stream, Z87.898 - Personal history of other specified conditions AMB Urinalysis Automated Today Z13.9 - Encounter for screening, unspecified Testosterone, Free/Total 4 Months E29.1 - Testicular hypofunction, R39.12 - Poor urinary stream, Z87.898 - Personal history of other specified conditions Medications: New tadalafil (Cialis) [id number] [facility] [id number] Member [id number] 5 mg PO DAILY 90 tabs 1RF 90 days Patient Instructions: The patient had an opportunity to ask questions regarding the treatment plan. All questions were answered. Physical exam, labs, and imaging were discussed and reviewed in detail. As well as risks, benefits, and discussion of treatment choices. No major barriers to understanding were identified. The patient expressed understanding and agreement with the above treatment plan. The patient was made aware they should contact our office by phone for worsening of their current condition, the appearance of new symptoms, or with any questions or concerns. Compliance is encouraged with any medications and follow up testing that is ordered. It is a privilege to be allowed the opportunity to participate in? your urological care.? Again, if you have any questions or concerns If you have any questions or concerns please do not hesitate to contact me. The office is [phone]. This note is constructed using voice recognition software. While every effort has been made to ensure accuracy magnetic resonance imaging coordinator errors may have been included. Yours sincerely, KAREN Garcia Coding Level of Care Code Est Pt Level 4 (05503) Diagnoses Weak urinary stream R39.12 History of urinary hesitancy Z87.898 Hypogonadism in male E29.1
--- OUTSIDE RECORDS SUMMARY | 2025-05-12 10:49 | XMS_ITS | Patient Health Record ---
Author Organization [facility] Address [address] [place] [address] Care Team Providers Care Graduate Nurse Name Role Phone Jewels Valentine Primary Care Provider Unavailab Mihir Zavaleta Unavailable [phone] Reason For Referral No Information Medications Medication [...] Problem Status W/U Status Risk Notes Problem Blood in stool (613046080) Blood in stool (K92.1) Active confirmed Problem Constipation (20118999) Constipation, unspecified constipation type (K59.00) Active confirmed Plan Of Treatment Pending Test Test Name Order Date GI BIOPSY 01/22/2016 Future Test Test Name Order Date COLONOSCOPY 11/13/2015 Insurance Providers Payer Name Payer Address Payer Phone Subscriber Number Group Number Insured Name Patient Relationship to Insured Coverage Start Date Coverage End Date [facility] [address] [place], [place] [id number] [phone] [id number] CHERISE SARAH Self - patient is the insured Medical (General) History Medical History History ICD Code Hypertension Denies IA,DM,CVA,Lung disease,renal dise ase Hyperlipidemia Surgical History Surgery Date(Month/Year) hand surgery 2001
== END 2025-05-12 10:14 | disposition home or self-care (01) ==
LOC: HO.HUSH 09:35
PROVIDERS: PCP Physician Assistant; Visit Provider Nurse Practitioner Family
DX: R39.12 Poor urinary stream (principal); Z87.898 Personal history of other specified conditions; E29.1 Testicular hypofunction; Z13.9 Encounter for screening, unspecified
CPT/HCPCS: 99214

== ENCOUNTER → 2025-05-12 09:34 | Outpatient (BNVA) | payer OTHER, SELFPAY | PROVIDERS: PCP Physician Assistant; Visit Provider Nurse Practitioner Family | DX: R39.12 Poor urinary stream (principal); E29.1 Testicular hypofunction; Z87.898 Personal history of other specified conditions | CPT/HCPCS: 81003; 99212 ==

== ENCOUNTER 2025-06-03 09:35 | Outpatient (AMB) | payer OTHER, SELFPAY ==
[2025-06-03 09:57] VITALS: BP 150/100; PULSE 84; TEMP 36.3; O2SAT 99; BMI 39.4
--- NOTE | 2025-06-03 09:57 | MHC.PC.OV ---
Vital Signs 06/03/25 09:57 Height 6 ft 2 in Weight 307 lb 2 oz BMI 39.4 BP 150/100 H Blood Pressure Location Lt brachial Position Sitting Pulse 84 Pulse Source Pulse Oximeter Temp 97.3 F Temp Source Temporal Artery Scan Pulse Oximetry (%) 99 Oxygen Delivery Method Room Air Intake Visit Reasons: pe Bowling Alley Attendant Required: No Accompanied by: Self / Same As Patient Allergies hydroxyzine Adverse Reaction (Unknown, Verified 06/03/25 10:10) sleepiness lisinopril Adverse Reaction (Unknown, Verified 06/03/25 10:10) dry cough, pruritus Medication List - Last Reconciled 06/03/25 by Jose Antonio Bryant PA-C atorvastatin 80 mg PO DAILY 90 days Held on 08/16/23. Instructions: Doctor's Order blood pressure test kit-large As directed cholecalciferol (vitamin D3) 25 mcg PO DAILY 90 days fenofibrate nanocrystallized 145 mg PO DAILY 90 days fenofibrate nanocrystallized 145 mg PO DAILY 90 days losartan 50 mg PO DAILY 30 days tadalafil (Cialis) 5 mg PO DAILY 90 days Tobacco use date assessed: 11/18/24 Dental Screening Dental Screen Date: 11/18/24 Did you have a dental visit in the last 12 months?: No Did you have a dental problem in the last 6 months where you did not have access to dental care?: No Was dental information given to patient?: No HPI pe HPI Details Patient 44-year-old male here today physical. Has a past medical history significant for hypertension, hypertriglyceridemia, obese, history of?iron deficiency anemia(GI blood loss). Concern--> patient reports more episodes of hot flashes as of late to which he attributes to being somewhat stressed at times. Also does report having some tingling in his feet from time to time. .. Hypertension: ? Today's blood pressure elevated today in office. otherwise denies any chest discomfort, headaches, vision issues. PLAN: Increase his losartan dose to 100 mg for better blood pressure control .. Class 2 obesity: Has a unfortunately gained weight since last office visit. .. Low testosterone: Has followed up with Urology. Recent hormone testing normal. Testosterone level a small bit better.. Has recently started tadalafil 5 mg daily to help increase his testosterone levels. .. ? HYpERtRigLyCErIdEMiA:? Has been holding high dose statin therapy. Has restarted fenofibrate . His triglycerides have improved since starting fenofibrate. 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 AGAIN AND STRONGLY ADVISED TO REDUCE HIGH CHOLESTEROL FOODS IN HIS DIET. Not interested in seeing a dietitian at this time. VAccine : Up-to-date COVID vaccine, tetanus vaccine and pneumonia vaccine. Need FLu vaccine Colorectal cancer screening-colonoscopy was done in 2020, repeat 5 years due to fair prep [facility] Medical History History of urinary hesitancy Pedal edema Pruritus Contact dermatitis Cough Anemia High cholesterol Hypertension Iron deficiency anemia Surgical History History of hemorrhoidectomy Hx of colonoscopy H/O hand surgery History of tonsillectomy Family History Mother Medical history unknown Father Prostate cancer Paternal Uncle Prostate cancer Paternal Grandfather Prostate cancer Diabetes Hypertension Sister Hypothyroid Social History (Updated 06/03/25 @ 10:14 by Jose Antonio Bryant PA-C) Housing: Apartment Are you a primary child care giver to a significant other at home: No Do you presently have visiting nurse or other home services: No Alcohol intake: current Alcohol intake frequency: a few times a month Comment: small amt red staining to abd pad Patient Tobacco Use Status: Never used Tobacco e-Cigarette/Vaping Use: Never Used Second Hand Smoke Exposure: No service: No Current occupational status: employed Current occupation: fuel truck driver Cognitive needs: No Hearing needs: No Vision needs: No Questionnaire PHQ-9 Over the last 2 weeks, how often have you been bothered by any of the following problems? 1. Little interest or pleasure in doing things: not at all 2. Feeling down, depressed, or hopeless: not at all 3. Trouble falling or staying asleep, or sleeping too much: not at all 4. Feeling tired or having little energy: not at all 5. Poor appetite or overeating: not at all 6. Feeling bad about yourself - or that you are a failure or have let yourself or your family down: not at all 7. Trouble concentrating on things, such as reading the newspaper or watching television: not at all 8. Moving or speaking so slowly that other people could have noticed. Or the opposite - being so fidgety or restless that you have been moving around a lot more than usual: not at all 9. Thoughts that you would be better off or of hurting yourself in some way: not at all Total score: 0 Depression Screening Interpretation: Negative Depression Screening Done: Yes 78529 - PHQ-9 Billing: Yes Source: Developed by Drs. Mihir Ash, Patricia Tatum, Marcell Contreras and colleagues, with an educational belem from [employer]. Thrive Questionnaire Date Thrive assessed: 11/18/24 I am a: Patient What is your living situation today?: I have a steady place to live Within the past 12 months, did the food you bought not last and you didn't have the money to get more?: I choose not to answer this question Within the past 12 months, did you worry whether your food would run out before you got money to buy more?: I choose not to answer this question Do you have trouble paying for medicines?: I choose not to answer this question Do you have trouble getting transportation to medical appointments?: I choose not to answer this question Do you have trouble paying your heating and electricity bill?: I choose not to answer this question Do you have trouble taking care of your child, family member or friend?: I choose not to answer this question Do you have trouble with day-to-day activities such as bathing, preparing meals, shopping, managing finances, etc.?: I choose not to answer this question Are you currently unemployed and looking for a job?: I choose not to answer this question Are you interested in more education?: I choose not to answer this question Please select the resources that you would like help with: None Currently or been in a relationship where the following occur: I choose not to answer THRIVE Score: 0 AUDIT C Alcohol Use Questionnaire (AUDIT-C) 1. How often do you have a drink containing alcohol?: 2-4 times a month 2. How many drinks containing alcohol do you have on a typical day when you are drinking?: 3 or 4 3. How often do you have six or more drinks on one occasion?: Less than monthly Total Score: 4 DELMA-7 AMB Questionnaire DELMA-7 Date DELMA - 7 assessed: 11/18/24 Feeling nervous, anxious, or on edge: 3 = Nearly every day Not being able to stop or control worryin = Nearly every day Worrying too much about different things: 3 = Nearly every day Trouble relaxin = Nearly every day Being so restless that it is hard to sit still: 0 = Not at all Becoming easily annoyed or irritable: 0 = Not at all Feeling afraid as if something awful might happen: 3 = Nearly every day Total DELMA-7 score (0-4 normal; 5-9 mild; 10-14 moderate; 15-21 severe): 15 Source: Developed by Drs. Mihir Ash, Patricia Tatum, Marcell Contreras and colleagues, with an educational belem from [employer]. DELMA-7 Assessment Billing DELMA-7 Assessment Tool: DELMA-7 Assessment 89648 Review of Systems Const Denies body aches, Denies chills, Denies excessive sweating, Denies fatigue, Denies fever(s) and Denies headache(s) Eyes Denies blurry vision ENT Denies dysphagia, Denies vertigo, Denies dizziness, Denies headache(s), Denies hearing loss and Denies tinnitus Card Denies chest pain, Denies chest pain with activity, Denies syncope, Denies irregular heart rhythm and Denies dyspnea Resp Denies chest congestion, Denies cough, Denies hemoptysis, Denies dyspnea and Denies wheezing GI Denies abdominal pain, Denies melena, Denies hematochezia, Denies coffee ground emesis, Denies dysphagia, Denies diarrhea, Denies nausea and Denies vomiting Denies difficulty urinating, Denies dysuria, Denies urinary frequency, Denies urinary hesitancy and Denies urinary urgency Musc Denies arthralgias, Denies limited range of motion, Denies muscle cramps and Denies muscle weakness Skin/Breast Denies rash and Denies skin ulcer Neuro Denies Abnormal speech present, Denies confusion, Denies vertigo, Denies dizziness, Denies syncope, Denies headache(s), Denies memory loss and Denies seizure-like activity Psych Denies anxiety, Denies confusion, Denies depression, Denies memory loss, Denies panic attacks and Denies paranoia Endo Denies excessive sweating, Denies fatigue, Denies flushing, Denies polydipsia and Denies polyuria Aller/Immun Denies wheezing Physical exam (Primary Care) Vital Signs: Last Vital Signs Temp 97.3 F 06/03/25 09:57 Pulse 84 06/03/25 09:57 BP 150/100 H 06/03/25 09:57 Pulse Ox 99 06/03/25 09:57 Oxygen Delivery Method Room Air 06/03/25 09:57 BMI result Body Mass Index 39.4 BMI Assessment/Plan discussion: High BMI High, discussed plan: lifestyle, weight reduction, dietary and physical activity Tobacco/Smoking Status: Tobacco use Status Tobacco use date assessed 11/18/24 06/03/25 10:02 Patient Tobacco Use Status Never used Tobacco 06/03/25 10:14 e-Cigarette/Vaping Use Never Used 06/03/25 10:14 PHQ-9: PHQ-9 Score PHQ-9: Total score 0 06/03/25 10:11 Depression Screening Interpretation: Negative Thrive Assessment: Date of Thrive Assessment Date Thrive assessed 11/18/24 06/03/25 10:02 Currently or been in a relationship where the following occur: I choose not to answer Const General: cooperative, comfortable, no acute distress, alert and awake; No confusion Orientation/consciousness: oriented to person, oriented to place, patient oriented x3 and No confusion HENMT Head: Yes normocephalic Ears: external ears normal and TM's normal bilaterally Face and sinus: No sinus tenderness Mouth: Normal oral and palatal mucosa present and tongue normal Teeth and gingiva: dentition normal and gingiva normal Throat: Yes posterior oropharynx normal, Yes tonsils normal and Yes uvula midline Eyes Conjunctivae: conjunctivae normal Sclerae: sclerae normal Pupils: Equal, round and reactive pupils present EOM: EOMs intact bilaterally Direct Ophthalmoscopy: No no photophobia Neck Neck: Yes no lymphadenopathy, No tender and Yes no JVD Thyroid: Thyroid normal Carotids: no bruits Chest Chest palpation & inspection: no tenderness Resp Effort & Inspection: normal respiratory effort, no audible wheezes, not labored and no stridor Auscultation: no crackles, no rales, no rhonchi and no wheezes Cardio Jugular venous distension: no JVD Rate: regular rate, not bradycardic and not tachycardic Rhythm: regular rhythm Bruits: no carotid bruits Peripheral pulses: Peripheral pulses 2+ throughout GI Inspection: Yes normal to inspection, No abdominal wall ecchymosis and No visible herniation Palpation (GI): Soft to palpation, nontender, no guarding, not rigid and No hepatosplenomegaly present Auscultation: normoactive bowel sounds General: Yes no CVA tenderness Back/Spine/Pelvis Back: no CVA tenderness and No back tenderness Cervical Spine: cervical ROM normal Thoracic/Lumbar Spine: thoracic and lumbar spine normal to inspection, straight leg raise negative bilaterally, No thoraco-lumbar ROM limited and No lumbar spinal tenderness Skin Lesions: no lesions Rashes: no rashes Wounds: no wounds Neuro General: oriented to person, oriented to place, patient oriented x3, CN's II-XI intact bilaterally and No confusion Cranial nerves: Yes Equal, round and reactive pupils present and Yes Normal accommodation reflex present Cognition (Neuro): normal cognition Speech: No Abnormal speech present Gait exam (Neuro): Normal gait present Motor exam (neuro): 5/5 motor strength present throughout Extrem Right upper extremity: full ROM; no cyanosis Left upper extremity: full ROM; no cyanosis Right lower extremity: no edema Left lower extremity: no edema Psych Appearance: grossly normal Mental Status: mental status grossly normal Affect: normal affect Attitude: cooperative Thought process: Normal thought process present Office Procedures Flu Questionnaire Does the patient have a severe egg allergy?: No Does the patient have severe life threatening allergies?: No Does the patient have a fever or illness today?: No Has the patient ever had Guillain-[place] Syndrome?: No Has the patient ever had any past reaction to a flu shot?: No Immunizations Fluarix [id number] (PF) 45 mcg (15 mcg x 3)/0.5 mL IM syringe Performing Provider: Jose Antonio Bryant PA-C [facility] Administered by: Aubrie Mcgee CMA on 06/03/25 10:34 Dose Route Admin Location Dispensed Lot Number Expiration Date [facility] Tooth Cutter Clutch 0.5 mL IM Left Deltoid 0.5 mL [id number] 01/13/26 [id number] [employer] VIS Given Date VIS Provided VIS Publication Date 06/03/25 Single Vaccine 24 Eligibility Eligibility Date Funding Source Not 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 Will try Celexa 10 mg daily to see if it will help reduce his anxious symptoms. Will follow up in 6 weeks via telehealth encounter to evaluate the effectiveness of medication. (3) HTN (hypertension): Code(s): I10 - Essential (primary) hypertension Category: Medical Qualifiers: Hypertension type: essential hypertension Qualified Code(s): I10 - Essential (primary) hypertension Plan: Patient's blood pressure elevated today in office. Will increase his losartan dose to 100 mg daily. Goal blood pressures to be below 140/90 (4) Hypogonadism in male: Code(s): E29.1 - Testicular hypofunction Category: Medical Plan: Patient now followed by Urology, most recent testosterone level slightly better. He now is on daily tadalafil 5 mg. 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 (6) Hypertriglyceridemia: Code(s): E78.1 - Pure hyperglyceridemia Category: Medical Plan: Patient continues to have elevated triglycerides. Continues on fenofibrate His total cholesterol and LDL also noted to be elevated. Will restart atorvastatin 80 mg to reduce cardiovascular risk as well Orders: Orders Comprehensive [place]. Panel Fast Today Jose Antonio Bryant PA-C I10 - Essential (primary) hypertension Lipid Panel Today Jose Antonio Bryant PA-C E78.2 - Mixed hyperlipidemia Influenza [id number] Immunization Today Jose Antonio Bryant PA-C Z23 - Encounter for immunization Complete Blood Count no Diff Today Jose Antonio Bryant PA-C I10 - Essential (primary) hypertension Prostate Specific Antigen Scr Today Jose Antonio Bryant PA-C Z12.5 - Encounter for screening for malignant neoplasm of prostate, Z80.42 - Family history of malignant neoplasm of prostate Referrals Dermatology Referral Jose Antonio Bryant PA-C L91.0 - Hypertrophic scar Medications: New losartan 100 mg PO DAILY 90 tabs 1RF 90 days Jose Antonio Bryant PA-C I10 - Essential (primary) hypertension citalopram (Celexa) 10 mg PO DAILY 30 tabs 1RF 30 days Jose Antonio Bryant PA-C F41.1 - Generalized anxiety disorder Refilled fenofibrate nanocrystallized 145 mg PO DAILY 90 tabs 2RF 90 days Jose Antonio Bryant PA-C E78.1 - Pure hyperglyceridemia Discontinued cholecalciferol (vitamin D3) Discontinued Reason: Doctor's Order 25 mcg PO DAILY 90 days 90 tabs 2RF I10 - Essential (primary) hypertension losartan Discontinued Reason: Doctor's Order 50 mg PO DAILY 30 days 30 tabs 3RF I10 - Essential (primary) hypertension Resumed atorvastatin 80 mg PO DAILY 90 tabs 1RF 90 days Jose Antonio Bryant PA-C E78.2 - Mixed hyperlipidemia atorvastatin 80 mg PO DAILY 90 days 90 tabs 1RF Jewels Vo MD
== END 2025-06-03 10:38 | disposition home or self-care (01) ==
LOC: HO.HMCH 09:35
PROVIDERS: PCP Physician Assistant; Visit Provider Physician Assistant
DX: Z00.00 Encounter for general adult medical examination without abnormal findings (principal); F41.1 Generalized anxiety disorder; I10 Essential (primary) hypertension; E29.1 Testicular hypofunction; L91.0 Hypertrophic scar; E78.1 Pure hyperglyceridemia; Z23 Encounter for immunization

== ENCOUNTER → 2025-06-03 09:35 | Outpatient (BNVA) | payer OTHER, SELFPAY | PROVIDERS: PCP Physician Assistant; Visit Provider Physician Assistant | DX: Z00.00 Encounter for general adult medical examination without abnormal findings (principal); Z23 Encounter for immunization; F41.1 Generalized anxiety disorder; I10 Essential (primary) hypertension; E29.1 Testicular hypofunction; E78.1 Pure hyperglyceridemia; L91.0 Hypertrophic scar | CPT/HCPCS: 90471; 90656; 96127; 99396 ==